=== PATIENT | male | born 1995 | race American Indian/Alaskan Native ===

== ENCOUNTER 2018-05-22 06:34 | Emergency (ER) | payer SELFPAY ==
[2018-05-22] MEDS ORDERED: ATIVAN IM PRN (09:06)
--- NOTE | 2018-05-22 09:08 | Emergency Department Report ---
ED General Adult HPI - General Chief complaint: Altered Mental Status Stated complaint: R KNEE PAIN/MH EVAL Time Seen by Provider: 05/22/18 09:01 Source: patient, EMS (ems notes not available at time of chart dictation), RN notes reviewed Mode of arrival: Stretcher Limitations: Other (patient is disorganized and appears to be psychotic) - History of Present Illness Initial comments: This is a 22-year-old gentleman with a history of psychiatric disease. He reports that he is out of his valproic acid. As per nursing documentation, patient has been off of his psychiatric medications for days, also has recently admitted to cocaine and marijuana binge. The patient complaining of right lateral knee pain. The pain is sharp, aching, increases with palpation and decreases with rest. It does not radiate anywhere. The patient denies headache, neck pain, chest pain, abdominal pain and shortness of breath. The patient is asking to eat. Patient to me denies suicidality. However, he did endorse some passive comments of "hurting someone." To me he denied this. The patient is disorganized and is a poor historian. There is no family available for collateral information or history at this point in time. -: unknown Location: right, lower extremity Radiation: non-radiation Quality: aching Consistency: intermittent Improves with: other Worsens with: other - Related Data Allergies Allergy/AdvReac Type Severity Reaction Status Date / Time risperidone Allergy Intermediate Anaphylaxis Verified 05/22/18 15:42 ED Review of Systems ROS: Stated complaint: R KNEE PAIN/MH EVAL Other details as noted in HPI Constitutional: denies: fever Eyes: denies: eye discharge ENT: denies: epistaxis Respiratory: denies: cough Cardiovascular: denies: chest pain Musculoskeletal: arthralgia Skin: denies: lesions Neurological: denies: headache, weakness Psychiatric: denies: suicidal thoughts ED Past Medical Hx - Past Medical History Previous Medical History?: Yes Hx Hypertension: Yes Hx Psychiatric Treatment: Yes (Schizo affective D/O, Major depression) - Surgical History Past Surgical History?: No - Social History Smoking Status: Current Every Day Smoker Substance Use Type: Alcohol, Cocaine, Marijuana ED Physical Exam - General Limitations: Other (patient boisterous, psychotic, but initially amenable to verbal de-escalation) General appearance: alert, anxious - Head Head exam: Present: atraumatic, normocephalic - Eye Eye exam: Present: normal appearance, EOMI. Absent: nystagmus - ENT ENT exam: Present: normal exam, normal orophraynx, mucous membranes moist, normal external ear exam - Neck Neck exam: Present: normal inspection, full ROM. Absent: tenderness, meningismus - Respiratory Respiratory exam: Present: normal lung sounds bilaterally. Absent: respiratory distress - Cardiovascular Cardiovascular Exam: Present: regular rate, normal rhythm, normal heart sounds. Absent: bradycardia, tachycardia, irregular rhythm, systolic murmur, diastolic murmur, rubs, gallop - GI/Abdominal GI/Abdominal exam: Present: soft. Absent: distended, tenderness, guarding, rebound, rigid, pulsatile mass - Rectal Rectal exam: Present: deferred - Extremities Exam Extremities exam: Present: normal inspection (there is an abrasion noted to the lateral aspect of the right knee.), full ROM, other (abrasion2+ pulses noted in the bilateral upper, lower extremities. Compartments soft. No long bony tenderness. The pelvis is stable.) - Back Exam Back exam: Present: normal inspection, full ROM. Absent: tenderness, CVA tenderness (R), paraspinal tenderness, vertebral tenderness - Neurological Exam Neurological exam: Present: alert, oriented X3, other (abrasion noted to right lateral knee.). Absent: motor sensory deficit - Psychiatric Psychiatric exam: Present: anxious, manic - Skin Skin exam: Present: warm, dry, intact, normal color, other (abrasion over the right lateral neck). Absent: rash ED Course Vital Signs 05/22/18 05/22/18 08:30 14:02 Temperature 98.1 F 97.9 F Pulse Rate 87 87 Respiratory 18 87 H Rate Blood Pressure 131/78 124/75 [Right] O2 Sat by Pulse 98 95 Oximetry ED Medical Decision Making - Lab Data Result diagrams: 05/22/18 09:11 05/22/18 09:11 Vital Signs 05/22/18 08:30 Temperature 98.1 F Pulse Rate 87 Respiratory 18 Rate Blood Pressure 131/78 [Right] O2 Sat by Pulse 98 Oximetry Lab Results 05/22/18 05/22/18 05/22/18 Range/Units 09:11 09:11 09:11 WBC 8.0 (4.5-11.0) K/mm3 RBC 4.61 (3.65-5.03) M/mm3 Hgb 14.6 (11.8-15.2) gm/dl Hct 40.9 (35.5-45.6) % MCV 89 (84-94) fl MCH 32 (28-32) pg MCHC 36 H (32-34) % RDW 13.4 (13.2-15.2) % Plt Count 205 (140-440) K/mm3 Sodium 141 (137-145) mmol/L Potassium 3.9 (3.6-5.0) mmol/L Chloride 104.1 (98-107) mmol/L Carbon Dioxide 25 (22-30) mmol/L Anion Gap 16 mmol/L BUN 18 (9-20) mg/dL Creatinine 1.0 (0.8-1.5) mg/dL Estimated GFR > 60 ml/min BUN/Creatinine Ratio 18 % Glucose 88 (75-100) mg/dL Calcium 9.2 (8.4-10.2) mg/dL Total Creatine Kinase 716 H (55-170) units/L Salicylates < 0.3 L (2.8-20.0) mg/dL Acetaminophen (10.0-30.0) ug/mL Valproic Acid 26.4 L (50-100) ug/mL Plasma/Serum Alcohol (0-0.07) % 05/22/18 05/22/18 Range/Units 09:11 09:11 WBC (4.5-11.0) K/mm3 RBC (3.65-5.03) M/mm3 Hgb (11.8-15.2) gm/dl Hct (35.5-45.6) % MCV (84-94) fl MCH (28-32) pg MCHC (32-34) % RDW (13.2-15.2) % Plt Count (140-440) K/mm3 Sodium (137-145) mmol/L Potassium (3.6-5.0) mmol/L Chloride (98-107) mmol/L Carbon Dioxide (22-30) mmol/L Anion Gap mmol/L BUN (9-20) mg/dL Creatinine (0.8-1.5) mg/dL Estimated GFR ml/min BUN/Creatinine Ratio % Glucose (75-100) mg/dL Calcium (8.4-10.2) mg/dL Total Creatine Kinase (55-170) units/L Salicylates (2.8-20.0) mg/dL Acetaminophen < 5.0 L (10.0-30.0) ug/mL Valproic Acid (50-100) ug/mL Plasma/Serum Alcohol < 0.01 (0-0.07) % - Radiology Data Radiology results: report reviewed, image reviewed X-ray of the right knee is negative for acute disease - Medical Decision Making Differential diagnosis, including but not limited to: Psychosis, intoxication, knee abrasion Assessment and plan: 22-year-old gentleman who appears to lack decision-making capacity, who has made passive, to not wanting to hurt other people. Initially, when his provider evaluated the patient, he was disorganized, and endorses no suicidality. However, he refused to speak to the psychiatric twisting department end finder. In addition, he did make comments to the nurse who triaged him that he had contemplated hurting other people. Since the patient appears to lack decision-making capacity currently, and has made some passive thoughts about wanting to harm other people, and they be intoxicated and impaired and currently is lacking decision-making capacity, the patient is placed on a 1013 and involuntary hold. We will give oral fluids for his creatinine kinase of 700. This level by itself does not meet the definition criteria of rhabdomyolysis, and will decrease with oral fluids. Patient has normal renal function, and soft muscular compartments. His knee x-ray was unremarkable. His physical examination was otherwise unremarkable. At this point in time, there does not appear to be an immediate medical contraindication to psychiatric admission, evaluation, and consultation. Critical care attestation.: If time is entered above; I have spent that time in minutes in the direct care of this critically ill patient, excluding procedure time. ED Disposition Clinical Impression: Psychosis Disposition: DC/TX-65 PSY HOSP/PSY UNIT Is pt being admited?: No Does the pt Need Aspirin: No Condition: Good Referrals: MERLENE COYNE [Primary Care Provider] - 3-5 Days
[2018-05-22 09:26] LABS: Hematocrit 40.9 % (35.5-45.6); Hemoglobin 14.6 gm/dl (11.8-15.2); Mean Corpuscular HGB Conc 36 % (32-34); Mean Corpuscular Volume 89 fl (84-94); Platelet Count 205 K/mm3 (140-440); Red Blood Count 4.61 M/mm3 (3.65-5.03); Red Cell Distribution Width 13.4 % (13.2-15.2)
[2018-05-22 09:44] LABS: BUN/Creatinine Ratio 18; Blood Urea Nitrogen 18 mg/dL (9-20); Calcium 9.2 mg/dL (8.4-10.2); Hemolysis Index 8
--- NOTE | 2018-05-22 11:29 | XRay Report ---
RIGHT KNEE: Pain. The bony architecture is intact without evidence of fracture or dislocation. No significant soft tissue abnormality is seen. IMPRESSION: Normal right knee.
[2018-05-22] MEDS ORDERED: NACL 0.9% 1000 ML 2,000 ML IV ONE (12:39)
[2018-05-22] MEDS ORDERED: HALDOL IM PRN (12:39)
[2018-05-22 16:40] LABS: Amphetamine Screen,Urine PRESUMPTIVE NEGATIVE; Benzodiazepines Screen,Urine PRESUMPTIVE NEGATIVE; Methadone Screen,Urine PRESUMPTIVE NEGATIVE; Opiate Screen,Urine PRESUMPTIVE NEGATIVE
[2018-05-22 16:57] LABS: Cannabinoid Screen,Urine PRESUMPTIVE POSITIVE; Cocaine Screen,Urine PRESUMPTIVE POSITIVE
--- NOTE | 2018-05-23 13:06 | Consultation ---
Addendum entered and electronically signed by BETH JOEL NP 05/23/18 13:58: Will initiate the patient's psy medications once all labs have resulted. Original Note: History of Present Illness - Reason for Consult Consult date: 05/23/18 Reason for consult: Mental Health Evaluation Requesting physician: NEO MABRY - Chief Complaint Chief complaint: "I need my medication" - History of Present Psychiatric Illness 22 y.o. AA male who presented to the ER for bizarre behavior. Today the patient is calm, but disorganized during the assessment. He stated that he was just released from [facility]. He was asked several times why he came to the E R, he stated "For my knee." He was asked how did he end up on a 1013, he could not explain. His answers were not logical nor was he lucid. He was questioned about hurting someone, he would stare at me the provider and ramble about something else irrelevant. His stated that he haven't slept for day prior to coming to the ER. He denies SI/HI's and VH's. He would not confirm or deny AH's. He denies a poor appetite. He acknowledged using recreational drugs when asked. Medications and Allergies Allergies Allergy/AdvReac Type Severity Reaction Status Date / Time risperidone Allergy Intermediate Anaphylaxis Verified 05/22/18 15:42 Home Medications Medication Instructions Recorded Confirmed Last Taken Type No Known Home Medications [No 05/22/18 05/22/18 Unknown History Reported Home Medications] Active Meds: Active Medications Haloperidol Lactate (Haldol) 5 mg IM Q6HR PRN PRN Reason: Agitation Last Admin: 05/22/18 16:00 Dose: 5 mg Documented by: Lorazepam (Ativan) 2 mg IM Q4HR PRN PRN Reason: Agitation Past psychiatric history - Past Medical History Past Medical History: hypertension Past Surgical History: No surgical history - past Psychiatric treatment and history psychiatric treatment history: inpatient at [facility] last week per the patient. Denies a fam psy hx. - Social History Social history: lives with family Mental Status Exam - Vital signs Last Vital Signs Temp 98.4 F 05/23/18 07:20 Pulse 92 H 05/23/18 07:20 Resp 18 05/23/18 07:20 BP 140/79 05/23/18 07:20 Pulse Ox 99 05/23/18 07:20 - Exam Narrative exam: MSE: Appearance: disheveled Behavior: poor eye contact Speech: regular rate with and tone Mood: labile Affect: congruent to mood Thought Process: disorganized Thought Content: denies SI/Hi's and VH's Motor Activity: sitting up in bed Cognition: A/O x3 Insight: poor Judgment: poor Results Result Diagrams: 05/22/18 09:11 05/22/18 09:11 All other labs normal. Assessment and Plan Assessment and plan: Impression: Unspecified Mood DO with psy features. Substance Use DO (cocaine). Cannabis Use DO. The patient is possibly manic. Today the patient is calm, but disorganized during the assessment DDx: Bipolar DO, Schizoaffective DO, Substance Induced Mood/Psychotic DO Recommendation/Plan: Continue 1013 and start Seroquel 100 mg PO HS for yvette/psychosis and Depakote 500 mg PO BID for mood. Discussed possible metabolic side effects of Seroquel with the patient. Dispo: The patient can was referred to inpatient psy services. Will staff with Dr Zainab Boone.
[2018-05-23 13:57] LABS: Alanine Aminotransferase 14 units/L (7-56)
[2018-05-23 15:11] LABS: Bilirubin,Urine NEG (Negative); Blood,Urine NEG (Negative); Color,Urine Yellow (Yellow); Mucus,Urine FEW /HPF; Protein,Urine <15 mg/dL mg/dL (Negative)
--- NOTE | 2018-05-24 14:10 | Progress Note ---
Subjective - Reason for Consult Consult date: 05/24/18 Reason for consult: Psychiatric Follow-up Evaluation - Chief Complaint Chief complaint: " I feel more healthier than yesterday" Patient is a 22 y.o. AA male who presented to the ER for bizarre behavior. Today the patient is calm, but disorganized during the assessment. During assessment patient can be seen responding to internal stimuli. He reports good appetite and poor sleep. He continuously states that he came to the emergency room for a knee energy, a panic attack, and other things he care not to discuss. He denies SI/HI's, A/VH's, and delusions. Mental Status Exam - Vital signs Last Vital Signs Temp 98.3 F 05/24/18 07:59 Pulse 63 05/24/18 07:59 Resp 18 05/24/18 07:59 BP 153/67 05/24/18 07:59 Pulse Ox 100 05/24/18 07:59 - Exam Narrative exam: Mental Status Exam Appearance: disheveled Behavior: poor eye contact Speech: regular rate with and tone Mood: labile' " more healthier than yesterday" Affect: congruent to mood Thought Process: disorganized Thought Content: denies SI/Hi's and VH's Motor Activity: sitting up in bed Cognition: A/O x3 Insight: poor Judgment: poor Assessment and Plan Impression: Unspecified Mood DO with psychotic features. Substance Use DO (cocaine). Cannabis Use DO. The patient is possibly manic. Today the patient is calm, but disorganized during the assessment. DDx: Bipolar DO, Schizoaffective DO, Substance Induced Mood/Psychotic DO Recommendation/Plan: 1. Continue 1013. Will reassess in 24 hours. 2. Start Seroquel 100 mg PO HS for yvette/psychosis and Depakote 500 mg PO BID for mood. Discussed possible metabolic side effects of Seroquel with the patient. 3. Will continue to monitor mood, psychosis, sleep, appetite, compliance, and side effects. Disposition: The patient can was referred to inpatient psychiatric services. Will staff with Dr. Dionte Boone.
[2018-05-24 20:53] VITALS: BP 125/88
== END 2018-05-25 03:13 ==
LOC: EEVIPCON 06:34 → ED 06:34
DX: F29 Unspecified psychosis not due to a substance or known physiological condition (principal); F39 Unspecified mood [affective] disorder; F25.9 Schizoaffective disorder, unspecified; M25.561 Pain in right knee; F32.9 Major depressive disorder, single episode, unspecified; F14.10 Cocaine abuse, uncomplicated; F12.10 Cannabis abuse, uncomplicated; I10 Essential (primary) hypertension; F17.200 Nicotine dependence, unspecified, uncomplicated; Z88.8 Allergy status to other drugs, medicaments and biological substances; Z79.899 Other long term (current) drug therapy
CPT/HCPCS: 36415; 73562; 80048; 80164; 80307; 81001; 82150; 82550; 83690; 84075; 84450; 84460; 85027; 96372; 99285; G0480; J1630; 80320

== ENCOUNTER 2019-11-14 02:23 | Emergency (ER) | payer SELFPAY ==
[2019-11-14 03:37] LABS: BUN/Creatinine Ratio 12; Blood Urea Nitrogen 14 mg/dL (9-20); Calcium 9.2 mg/dL (8.4-10.2); Hemolysis Index 7
[2019-11-14 03:55] LABS: Basophils % (Auto) 0.4 % (0.0-1.8); Eosinophils # (Auto) 0.1 K/mm3 (0.0-0.4); Eosinophils % (Auto) 1.5 % (0.0-4.3); Lymphocytes # (Auto) 1.5 K/mm3 (1.2-5.4); Lymphocytes % (Auto) 30.3 % (13.4-35.0); Mean Corpuscular HGB Conc 36 % (32-34); Mean Corpuscular Volume 87 fl (84-94); Monocytes # (Auto) 0.5 K/mm3 (0.0-0.8); Monocytes % (Auto) 10.1 % (0.0-7.3); Platelet Count 236 K/mm3 (140-440); Red Blood Count 4.23 M/mm3 (3.65-5.03); Red Cell Distribution Width 13.1 % (13.2-15.2)
[2019-11-14 04:00] LABS: Hematocrit 36.8 % (35.5-45.6); Hemoglobin 13.3 gm/dl (11.8-15.2)
[2019-11-14 05:01] LABS: Bilirubin,Urine NEG (Negative); Blood,Urine SM (Negative); Color,Urine Yellow (Yellow); Mucus,Urine FEW /HPF; Protein,Urine <15 mg/dL mg/dL (Negative)
[2019-11-14 05:06] LABS: Amphetamine Screen,Urine PRESUMPTIVE POSITIVE; Benzodiazepines Screen,Urine PRESUMPTIVE NEGATIVE; Cannabinoid Screen,Urine PRESUMPTIVE POSITIVE; Cocaine Screen,Urine PRESUMPTIVE POSITIVE; Methadone Screen,Urine PRESUMPTIVE NEGATIVE; Opiate Screen,Urine PRESUMPTIVE NEGATIVE
[2019-11-14] MEDS ORDERED: LIDOCAINE (1%) 10 MG/1 ML VIAL 20 ML MDV ONE (09:59)
--- NOTE | 2019-11-14 10:02 | Emergency Department Report ---
HPI - General Chief Complaint: Psych Time Seen by Provider: 11/14/19 09:32 - HPI HPI: Room 4 The patient is a 24-year-old male present with a chief complaint of suicidal ideation. Patient states he is felt depressed and suicidal for the past 2-3 days. When asked if he did anything to try to harm himself the patient states he took 2 unknown pills/drugs 2 days ago. Patient also admits to asking others for weapons so that he could kill himself. Of note approximately 7 to 8 days ago the patient was bitten on his right foot by an unknown dog ED Past Medical Hx - Past Medical History Previous Medical History?: Yes Hx Hypertension: Yes Hx Psychiatric Treatment: Yes (Schizo affective D/O, Major depression) - Surgical History Past Surgical History?: No - Family History Family history: no significant - Social History Smoking Status: Current Every Day Smoker Substance Use Type: Marijuana, Other - Medications Home Medications: Home Medications Medication Instructions Recorded Confirmed Last Taken Type Depakote Dr 1,000 mg PO BID 08/23/18 08/23/18 Unknown History SEROquel 300 mg PO DAILY 08/23/18 08/23/18 Unknown History ED Review of Systems ROS: Stated complaint: MH Other details as noted in HPI Constitutional: no symptoms reported Respiratory: no symptoms reported Endocrine: no symptoms reported Physical Exam - Physical Exam Vital Signs: Vital Signs 11/14/19 11/14/19 02:32 08:48 Temperature 99.0 F 98.1 F Pulse Rate 94 H 70 Respiratory 16 16 Rate Blood Pressure 136/88 141/85 O2 Sat by Pulse 95 100 Oximetry Physical Exam: GENERAL: The patient is well-developed well-nourished male lying on stretcher not appearing to be in acute distress. [] HEENT: Normocephalic. Atraumatic. Extraocular motions are intact. Patient has moist mucous membranes. NECK: Supple. Trachea midline CHEST/LUNGS: Clear to auscultation. There is no respiratory distress noted. HEART/CARDIOVASCULAR: Regular. There is no tachycardia. There is no gallop rub or murmur. ABDOMEN: Abdomen is soft, nontender. Patient has normal bowel sounds. There is no abdominal distention. SKIN: There is a well-healed scar on the right foot where the patient states he was bitten by dog. No open wounds. No surrounding erythema NEURO: The patient is awake, alert, and oriented. The patient is cooperative. The patient has normal speech MUSCULOSKELETAL: There is no evidence of acute injury. ED Course Vital Signs 11/14/19 11/14/19 02:32 08:48 Temperature 99.0 F 98.1 F Pulse Rate 94 H 70 Respiratory 16 16 Rate Blood Pressure 136/88 141/85 O2 Sat by Pulse 95 100 Oximetry - Reevaluation(s) Reevaluation #1: 11/14/19 10:51 Approximately 2 mils of rabies immunoglobulin injected locally around right foot dog bite site. Patient could no longer tolerate more injections of the remainder was given IM in the right deltoid - Consultations Consultation #1: 11/14/19 09:58 Case discussed with poison control. Still recommend administration of rabies immunoglobulin and rabies vaccination ED Medical Decision Making - Lab Data Result diagrams: 11/14/19 03:04 11/14/19 03:04 Laboratory Tests 11/14/19 11/14/19 11/14/19 03:04 03:04 03:04 WBC RBC Hgb Hct MCV MCH MCHC RDW Plt Count Lymph % (Auto) Craig % (Auto) Eos % (Auto) Baso % (Auto) Lymph # Craig # Eos # Baso # Seg Neutrophils % Seg Neutrophils # Sodium 135 L Potassium 3.5 L Chloride 100.3 Carbon Dioxide 24 Anion Gap 14 BUN 14 Creatinine 1.2 Estimated GFR > 60 BUN/Creatinine Ratio 12 Glucose 98 Calcium 9.2 Urine Color Urine Turbidity Urine pH Ur Specific [place] Urine Protein Urine Glucose (UA) Urine Ketones Urine Blood Urine Nitrite Urine Bilirubin Urine Urobilinogen Ur Leukocyte Esterase Urine WBC (Auto) Urine RBC (Auto) U Epithel Cells (Auto) Urine Mucus Salicylates < 0.3 L Urine Opiates Screen Urine Methadone Screen Acetaminophen 5.0 L Ur Barbiturates Screen Valproic Acid Ur Phencyclidine Scrn Ur Amphetamines Screen U Benzodiazepines Scrn Urine Cocaine Screen U Marijuana (THC) Screen Drugs of Abuse Note Plasma/Serum Alcohol 11/14/19 11/14/19 11/14/19 03:04 03:04 03:04 WBC 5.1 RBC 4.23 Hgb 13.3 Hct 36.8 MCV 87 MCH 32 MCHC 36 H RDW 13.1 L Plt Count 236 Lymph % (Auto) 30.3 Craig % (Auto) 10.1 H Eos % (Auto) 1.5 Baso % (Auto) 0.4 Lymph # 1.5 Craig # 0.5 Eos # 0.1 Baso # 0.0 Seg Neutrophils % 57.7 Seg Neutrophils # 2.9 Sodium Potassium Chloride Carbon Dioxide Anion Gap BUN Creatinine Estimated GFR BUN/Creatinine Ratio Glucose Calcium Urine Color Urine Turbidity Urine pH Ur Specific [place] Urine Protein Urine Glucose (UA) Urine Ketones Urine Blood Urine Nitrite Urine Bilirubin Urine Urobilinogen Ur Leukocyte Esterase Urine WBC (Auto) Urine RBC (Auto) U Epithel Cells (Auto) Urine Mucus Salicylates Urine Opiates Screen Urine Methadone Screen Acetaminophen Ur Barbiturates Screen Valproic Acid < 2.8 L Ur Phencyclidine Scrn Ur Amphetamines Screen U Benzodiazepines Scrn Urine Cocaine Screen U Marijuana (THC) Screen Drugs of Abuse Note Plasma/Serum Alcohol < 0.01 11/14/19 11/14/19 04:47 04:47 WBC RBC Hgb Hct MCV MCH MCHC RDW Plt Count Lymph % (Auto) Craig % (Auto) Eos % (Auto) Baso % (Auto) Lymph # Craig # Eos # Baso # Seg Neutrophils % Seg Neutrophils # Sodium Potassium Chloride Carbon Dioxide Anion Gap BUN Creatinine Estimated GFR BUN/Creatinine Ratio Glucose Calcium Urine Color Yellow Urine Turbidity Clear Urine pH 6.0 Ur Specific [place] 1.017 Urine Protein <15 mg/dl Urine Glucose (UA) Neg Urine Ketones Neg Urine Blood Sm Urine Nitrite Neg Urine Bilirubin Neg Urine Urobilinogen 4.0 Ur Leukocyte Esterase Neg Urine WBC (Auto) 3.0 Urine RBC (Auto) 3.0 U Epithel Cells (Auto) < 1.0 Urine Mucus Few Salicylates Urine Opiates Screen Presumptive negative Urine Methadone Screen Presumptive negative Acetaminophen Ur Barbiturates Screen Presumptive negative Valproic Acid Ur Phencyclidine Scrn Presumptive negative Ur Amphetamines Screen Presumptive positive U Benzodiazepines Scrn Presumptive negative Urine Cocaine Screen Presumptive positive U Marijuana (THC) Screen Presumptive positive Drugs of Abuse Note Disclamer Plasma/Serum Alcohol - Differential Diagnosis Suicidal ideation, dog bite Critical care attestation.: If time is entered above; I have spent that time in minutes in the direct care of this critically ill patient, excluding procedure time. ED Disposition Clinical Impression: Suicidal ideation, Dog bite of right foot Disposition: DC/TX-65 PSY HOSP/PSY UNIT Is pt being admited?: No Does the pt Need Aspirin: No Condition: Stable Additional Instructions: You have been given a dose of rabies immunoglobulin (1710 international units) as well as your first rabies vaccination. You need to receive 3 more vaccinations to protect you from rabies. Your second dose is due November 17, 2019, your third dose is due November 21, 2019 and your final dose is due November 28, 2019. Return to the emergency department or follow-up with your primary physician for these vaccinations. Return to the emergency department should you develop worsening symptoms, inability to tolerate food or liquids, high fever or any other concerns Referrals: PRIMARY CARE, [Primary Care Provider] - 3-5 Days Time of Disposition: 10:56 (Awaiting acceptance)
[2019-11-14] MEDS ORDERED: RABIES IMMUNE GLOBULIN P/F 300 UNIT/ML INJ 5 ML IM ONE (10:30)
[2019-11-14] MEDS ORDERED: RABIES VACCINE, HUMAN DIPLOID/PF 2.5 UNIT/ML VIAL IM ONE (10:30)
[2019-11-14] MEDS ORDERED: diphenhydrAMINE 50 MG/ML VIAL IV ONE (12:08)
[2019-11-14] MEDS ORDERED: LIDOCAINE (1%) 10 MG/1 ML VIAL 20 ML MDV INFILTRATI ONE (17:20)
[2019-11-15 08:04] VITALS: BP 125/82
--- NOTE | 2019-11-15 10:51 | Consultation ---
History of Present Illness - Reason for Consult Consult date: 11/15/19 Reason for consult: MHE Requesting physician: COLETTE PETERS - Chief Complaint Chief complaint: SI - History of Present Psychiatric Illness Per ED Provider: The patient is a 24-year-old male present with a chief complaint of suicidal ideation. Patient states he is felt depressed and suicidal for the past 2-3 days. When asked if he did anything to try to harm himself the patient states he took 2 unknown pills/drugs 2 days ago. Patient also admits to asking others for weapons so that he could kill himself. Of note approximately 7 to 8 days ago the patient was bitten on his right foot by an unknown dog. PSYCH HPI Patient is a single homeless unemployed 24-year-old -[place] male with past psychiatric history of schizophrenia and no significant past medical histor y was brought to the ER by EMS with chief complaint of suicidal ideation. Patient reports the audio production manager of the store at [employer] was the one who called EMS after he was wandering there and they asked him. 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 Patient reports his dad is currently late and his mom lives in another state. He also reported having multiple legal issues with most recent one was for theft. Patient endorses to illicit drug use such as pills, crack, marijuana. Patient endorses to feeling depressed due to hopelessness and helplessness and endorses suicidal ideation. PAST PSYCHIATRIC HISTORY Diagnoses: Schizoaffective Suicide attempts or Self-harm behavior: Yes Prior psychiatric hospitalizations: Yes Substance Abuse history: Crack, pills, marijuana Previous psychiatric medications tried: None reported Outpatient treatment: PAST MEDICAL HISTORY:None Family Psychiatric History: None reported or documented SOCIAL HISTORY Marital Status: single Living Arrangements: homeless Employment Status: unemployed Access to guns/weapons: none reported Education: High school History of Abuse: none reported [facility] REVIEW OF SYSTEMS Constitutional: Negative for weight loss ENT: Negative for stridor Respiratory: Negative for cough or hemoptysis All other systems reviewed and are negative MENTAL STATUS EXAMINATION General Appearance and Behavior: Age appropriate, fair hygiene, wearing appropriate clothes, good eye contact, cooperative polite with questioning. Cooperation: Participating/engaged Psychomotor Behavior: unremarkable and within normal limits Mood: Good Affect and affective range: congruent Thought Process: Fluent/Logical Thought Content: Hopelessness, Helplessness Speech: Normal volume, Regular rate and rhythm Intellectual Functioning: Average Suicidal Ideation: Denies SI Homicidal Ideation: Denies HI Impulse Control: Unimpaired Insight and Judgment: Normal insight and judgment Memory: Normal Attention: Normal, Orientation: Alert, oriented RECOMMENDATIONS Substance induce mood disorder, needs meds restarted and substance use rehab MEDICATIONS: home meds restarted Risks, benefits and alternatives of medications discussed with the patient, questions answered and consent obtained from patient. PSYCHOTHERAPY: Supportive psychotherapy provided MEDICAL: Per primary team DELIRIUM PRECAUTIONS: Please re-orient patient frequently, keep lights on during the day, and minimize benzodiazepines and opiates as these medications could worsen patient's confusion. EMPLOYEE OPERATIONS EXAMINER: Per medical team DISPOSITION: acute inpatient psychiatric hospitalization at this time LEGAL STATUS: 1013 FOLLOW-UP: Will follow Thank you for the consult. Please contact with any questions and/or concerns. Medications and Allergies Allergies Allergy/AdvReac Type Severity Reaction Status Date / Time risperidone Allergy Intermediate Anaphylaxis Verified 05/22/18 15:42 aripiprazole [From Abilify] Allergy Unknown Verified 11/14/19 02:38 ziprasidone [From Geodon] Allergy Unknown Verified 11/14/19 02:38 Home Medications Medication Instructions Recorded Confirmed Last Taken Type Depakote Dr 1,000 mg PO BID 08/23/18 08/23/18 Unknown History SEROquel 300 mg PO DAILY 08/23/18 08/23/18 Unknown History Mental Status Exam - Vital signs Last Vital Signs Temp 98.2 F 11/15/19 08:03 Pulse 80 11/15/19 08:03 Resp 18 11/15/19 08:03 BP 125/82 11/15/19 08:03 Pulse Ox 98 11/15/19 08:03 Results Result Diagrams: 11/14/19 03:04 11/14/19 03:04 All other labs normal.
[2019-11-15] MEDS ORDERED: busPIRone 10 MG TAB PO SCH (22:00)
[2019-11-15] MEDS ORDERED: QUEtiapine 100 MG TAB PO SCH (22:00)
== END 2019-11-15 16:40 ==
LOC: ED 02:23
DX: S91.351A Open bite, right foot, initial encounter (principal); R45.851 Suicidal ideations; I10 Essential (primary) hypertension; F17.200 Nicotine dependence, unspecified, uncomplicated; F12.10 Cannabis abuse, uncomplicated; Z79.899 Other long term (current) drug therapy; Z88.8 Allergy status to other drugs, medicaments and biological substances; W54.0XXA Bitten by dog, initial encounter; Y93.89 Activity, other specified; Y92.89 Other specified places as the place of occurrence of the external cause; Y99.8 Other external cause status
CPT/HCPCS: 36415; 80048; 80164; 80307; 81001; 85025; 90375; 90471; 90675; 96372; 96374; 99285; J1200; 80320; G0480

== ENCOUNTER 2019-12-20 19:07 | Emergency (ER) | payer SELFPAY ==
[2019-12-20 20:32] LABS: Hemoglobin 14.1 gm/dl (11.8-15.2); Mean Corpuscular HGB Conc 35 % (32-34); Mean Corpuscular Volume 89 fl (84-94); Platelet Count 238 K/mm3 (140-440); Red Blood Count 4.51 M/mm3 (3.65-5.03); Red Cell Distribution Width 13.2 % (13.2-15.2)
[2019-12-20 20:37] LABS: Benzodiazepines Screen,Urine Negative; Methadone Screen,Urine Negative; Opiate Screen,Urine Negative
[2019-12-20 20:38] LABS: BUN/Creatinine Ratio 18; Blood Urea Nitrogen 14 mg/dL (9-20); Calcium 8.8 mg/dL (8.4-10.2); Hemolysis Index 21
[2019-12-20 20:51] LABS: Amphetamine Screen,Urine Positive; Cannabinoid Screen,Urine Positive; Cocaine Screen,Urine Positive
[2019-12-20 21:15] LABS: Bilirubin,Urine NEG (Negative); Blood,Urine NEG (Negative); Color,Urine Yellow (Yellow); Mucus,Urine FEW /HPF; Protein,Urine <15 mg/dL mg/dL (Negative)
[2019-12-20 22:04] LABS: Total Cells Counted 100
[2019-12-20 22:05] LABS: Giant Platelets Rare; RBC Morphology Normal
--- NOTE | 2019-12-20 22:47 | Emergency Department Report ---
<MILEY ROBERTS - Last Filed: 12/20/19 22:39> ED Psych HPI - General Chief Complaint: Psych Stated Complaint: SUICIDAL Time Seen by Provider: 12/20/19 19:50 Source: patient, EMS Mode of arrival: Ambulatory - History of Present Illness Initial Comments: Patient is a 24-year-old F Sammarinese male who is presenting with suicidal ideations. Patient states prior to his arrival he took a friend's gun and held it to his head. Patient was not able to fire the gun. Gun was taken from him. Patient states he is just having thoughts of killing himself. He is denies any auditory or visual hallucinations. There is no homicidal ideations at this time. - Related Data Home Medications Medication Instructions Recorded Confirmed Last Taken Depakote Dr 1,000 mg PO BID 08/23/18 08/23/18 Unknown SEROquel 300 mg PO DAILY 08/23/18 08/23/18 Unknown Allergies Allergy/AdvReac Type Severity Reaction Status Date / Time risperidone Allergy Intermediate Anaphylaxis Verified 05/22/18 15:42 aripiprazole [From Abilify] Allergy Unknown Verified 11/14/19 02:38 ziprasidone [From Geodon] Allergy Unknown Verified 11/14/19 02:38 ED Review of Systems Comment: All other systems reviewed and negative ED Past Medical Hx - Past Medical History Hx Hypertension: Yes Hx Psychiatric Treatment: Yes (Schizo affective D/O, Major depression) - Social History Smoking Status: Current Every Day Smoker Substance Use Type: Alcohol, Cocaine - Medications Home Medications: Home Medications Medication Instructions Recorded Confirmed Last Taken Type Depakote Dr 1,000 mg PO BID 08/23/18 08/23/18 Unknown History SEROquel 300 mg PO DAILY 08/23/18 08/23/18 Unknown History ED Physical Exam - General Limitations: No Limitations General appearance: alert, in no apparent distress - Head Head exam: Present: atraumatic, normocephalic - Eye Eye exam: Present: normal appearance, PERRL, EOMI - ENT ENT exam: Present: mucous membranes moist - Neck Neck exam: Present: normal inspection - Respiratory Respiratory exam: Present: normal lung sounds bilaterally. Absent: respiratory distress, wheezes, rales, rhonchi - Cardiovascular Cardiovascular Exam: Present: regular rate, normal rhythm. Absent: systolic murmur, diastolic murmur, rubs, gallop - GI/Abdominal GI/Abdominal exam: Present: soft, normal bowel sounds. Absent: distended, tenderness, guarding, rebound - Rectal Rectal exam: Present: deferred - Extremities Exam Extremities exam: Present: normal inspection - Back Exam Back exam: Present: normal inspection - Neurological Exam Neurological exam: Present: alert, oriented X3 - Psychiatric Psychiatric exam: Present: normal affect, normal mood - Skin Skin exam: Present: warm, dry, intact, normal color. Absent: rash ED Course - Reevaluation(s) Reevaluation #1: 12/20/19 22:49 Patient is medically cleared at this time. Mental health assessment has been done and the patient will be placed on a 1013. Please see mental health assessment note LISHA MCKINNEY Male : 1995 MedRec# [id number] 12/20/19 22:33 - MH Fiber Picker's Note by MORRIS AGARWAL Acct Num: [id number] : 1995 Patient Age: 24 Pt is a 24 yo AA male presenting to ED for MHE, as pt reported SI with plan to shoot self with gun, Depression. During ax, pt presented with cooperative behaviors, anxious mood and cinongruent affect. Pt reports onset of SI with plan 12/20/19 . PT placed gun to head 12/20/19. Pt reports depression for four weeks. Pt identified trigger of lack of stable housing and social supports. Pt denies hx of attempts. Pt denies HI. Pt denies visual hallucinations. PT reports command hallucinations. Denies command hallucinations. Pt reports hx of Schizophrenia or Schizoeffective Disorder. Pt reports cocaine use. Pt reports "snorting " a couple lines 12/18/19. Pt reports onset age 18. Pt reports cocaine use three to four times a week. Pt reports maijuana abuse. Pt reports onset age 14. Pt reports last use 12/18/19. Pt reports smoking three or more blunts every three to four days. Pt reports last use . Pt repors alcohol abuse. Pt reports onset age 21. Pt reports drinking half a pint to a pint of hard liquor three to four times a week. Pt reports last use 12/18/19. Pt does not present with any active withdrawal symptoms currently but reports feeling uncomfortable. Pt reports is homeless. Pt is unemployed. Pt denies legal issues. Pt reports decline in sleep/appetite, informing research project coordinator that he has not been getting enough. Recommendations: At this time pt presents with active SI, with plan. Pt meets criteria for IP tx and will be referred for stabilization once medically cleared. Pt to be referred via [facility] board due to be uninsured. Initialized on 12/20/19 22:33 - END OF NOTE 12/20/19 22:50 ED Medical Decision Making - Lab Data Result diagrams: 12/20/19 20:08 12/20/19 20:08 Lab Results 12/20/19 12/20/19 12/20/19 Range/Units 20:08 20:08 20:08 WBC 5.9 (4.5-11.0) K/mm3 RBC 4.51 (3.65-5.03) M/mm3 Hgb 14.1 (11.8-15.2) gm/dl Hct 40.0 (35.5-45.6) % MCV 89 (84-94) fl MCH 31 (28-32) pg MCHC 35 H (32-34) % RDW 13.2 (13.2-15.2) % Plt Count 238 (140-440) K/mm3 Add Manual Diff Complete Total Counted 100 Seg Neutrophils % Child Welfare Caseworker Seg Neuts % (Manual) 30.0 L (40.0-70.0) % Band Neutrophils % 0 % Lymphocytes % (Manual) 56.0 H (13.4-35.0) % Reactive Lymphs % (Man) 0 % Monocytes % (Manual) 9.0 H (0.0-7.3) % Eosinophils % (Manual) 4.0 (0.0-4.3) % Basophils % (Manual) 1.0 (0.0-1.8) % Metamyelocytes % 0 % Myelocytes % 0 % Promyelocytes % 0 % Blast Cells % 0 % Nucleated RBC % Not Reportable Seg Neutrophils # Man 1.8 (1.8-7.7) K/mm3 Band Neutrophils # 0.0 K/mm3 Lymphocytes # (Manual) 3.3 (1.2-5.4) K/mm3 Abs React Lymphs (Man) 0.0 K/mm3 Monocytes # (Manual) 0.5 (0.0-0.8) K/mm3 Eosinophils # (Manual) 0.2 (0.0-0.4) K/mm3 Basophils # (Manual) 0.1 (0.0-0.1) K/mm3 Metamyelocytes # 0.0 K/mm3 Myelocytes # 0.0 K/mm3 Promyelocytes # 0.0 K/mm3 Blast Cells # 0.0 K/mm3 WBC Morphology Not Reportable Hypersegmented Neuts Not Reportable Hyposegmented Neuts Not Reportable Hypogranular Neuts Not Reportable Smudge Cells Not Reportable Toxic Granulation Not Reportable Toxic Vacuolation Not Reportable Dohle Bodies Not Reportable Pelger-Huet Anomaly Not Reportable David Rods Not Reportable Platelet Estimate Not Reportable Clumped Platelets Not Reportable Plt Clumps, EDTA Not Reportable Large Platelets Not Reportable Giant Platelets Rare Platelet Satelliting Not Reportable Plt Morphology Comment Not Reportable RBC Morphology Normal Dimorphic RBCs Not Reportable Polychromasia Not Reportable Hypochromasia Not Reportable Poikilocytosis Not Reportable Anisocytosis Not Reportable Microcytosis Not Reportable Macrocytosis Not Reportable Spherocytes Not Reportable Pappenheimer Bodies Not Reportable Sickle Cells Not Reportable Target Cells Not Reportable Tear Drop Cells Not Reportable Ovalocytes Not Reportable Helmet Cells Not Reportable Bobo-Bealeton Bodies Not Reportable [place] Rings Not Reportable Jemima Cells Not Reportable Bite Cells Not Reportable Crenated Cell Not Reportable Elliptocytes Not Reportable Acanthocytes (Spur) Not Reportable Rouleaux Not Reportable Hemoglobin C Crystals Not Reportable Schistocytes Not Reportable Malaria parasites Not Reportable Jonathan Bodies Not Reportable Hem Pathologist Commnt No Sodium 141 (137-145) mmol/L Potassium 4.0 (3.6-5.0) mmol/L Chloride 104.9 (98-107) mmol/L Carbon Dioxide 24 (22-30) mmol/L Anion Gap 16 mmol/L BUN 14 (9-20) mg/dL Creatinine 0.8 (0.8-1.3) mg/dL Estimated GFR > 60 ml/min BUN/Creatinine Ratio 18 % Glucose 106 H (75-100) mg/dL Calcium 8.8 (8.4-10.2) mg/dL Urine Color (Yellow) Urine Turbidity (Clear) Urine pH (5.0-7.0) Ur Specific [place] (1.003-1.030) Urine Protein (Negative) mg/dL Urine Glucose (UA) (Negative) mg/dL Urine Ketones (Negative) mg/dL Urine Blood (Negative) Urine Nitrite (Negative) Urine Bilirubin (Negative) Urine Urobilinogen (<2.0) mg/dL Ur Leukocyte Esterase (Negative) Urine WBC (Auto) (0.0-6.0) /HPF Urine RBC (Auto) (0.0-6.0) /HPF U Epithel Cells (Auto) (0-13.0) /HPF Urine Mucus /HPF Salicylates < 0.3 L (2.8-20.0) mg/dL Urine Opiates Screen Urine Methadone Screen Acetaminophen (10.0-30.0) ug/mL Ur Barbiturates Screen Ur Phencyclidine Scrn Ur Amphetamines Screen U Benzodiazepines Scrn Urine Cocaine Screen U Marijuana (THC) Screen Drugs of Abuse Note Plasma/Serum Alcohol (0-0.07) % 12/20/19 12/20/19 12/20/19 Range/Units 20:08 20:08 Unknown WBC (4.5-11.0) K/mm3 RBC (3.65-5.03) M/mm3 Hgb (11.8-15.2) gm/dl Hct (35.5-45.6) % MCV (84-94) fl MCH (28-32) pg MCHC (32-34) % RDW (13.2-15.2) % Plt Count (140-440) K/mm3 Add Manual Diff Total Counted Seg Neutrophils % Seg Neuts % (Manual) (40.0-70.0) % Band Neutrophils % % Lymphocytes % (Manual) (13.4-35.0) % Reactive Lymphs % (Man) % Monocytes % (Manual) (0.0-7.3) % Eosinophils % (Manual) (0.0-4.3) % Basophils % (Manual) (0.0-1.8) % Metamyelocytes % % Myelocytes % % Promyelocytes % % Blast Cells % % Nucleated RBC % Seg Neutrophils # Man (1.8-7.7) K/mm3 Band Neutrophils # K/mm3 Lymphocytes # (Manual) (1.2-5.4) K/mm3 Abs React Lymphs (Man) K/mm3 Monocytes # (Manual) (0.0-0.8) K/mm3 Eosinophils # (Manual) (0.0-0.4) K/mm3 Basophils # (Manual) (0.0-0.1) K/mm3 Metamyelocytes # K/mm3 Myelocytes # K/mm3 Promyelocytes # K/mm3 Blast Cells # K/mm3 WBC Morphology Hypersegmented Neuts Hyposegmented Neuts Hypogranular Neuts Smudge Cells Toxic Granulation Toxic Vacuolation Dohle Bodies Pelger-Huet Anomaly David Rods Platelet Estimate Clumped Platelets Plt Clumps, EDTA Large Platelets Giant Platelets Platelet Satelliting Plt Morphology Comment RBC Morphology Dimorphic RBCs Polychromasia Hypochromasia Poikilocytosis Anisocytosis Microcytosis Macrocytosis Spherocytes Pappenheimer Bodies Sickle Cells Target Cells Tear Drop Cells Ovalocytes Helmet Cells Bobo-Bealeton Bodies [place] Rings Emmet Cells Bite Cells Crenated Cell Elliptocytes Acanthocytes (Spur) Rouleaux Hemoglobin C Crystals Schistocytes Malaria parasites Jonathan Bodies Hem Pathologist Commnt Sodium (137-145) mmol/L Potassium (3.6-5.0) mmol/L Chloride (98-107) mmol/L Carbon Dioxide (22-30) mmol/L Anion Gap mmol/L BUN (9-20) mg/dL Creatinine (0.8-1.3) mg/dL Estimated GFR ml/min BUN/Creatinine Ratio % Glucose (75-100) mg/dL Calcium (8.4-10.2) mg/dL Urine Color Yellow (Yellow) Urine Turbidity Clear (Clear) Urine pH 6.0 (5.0-7.0) Ur Specific [place] 1.032 H (1.003-1.030) Urine Protein <15 mg/dl (Negative) mg/dL Urine Glucose (UA) Neg (Negative) mg/dL Urine Ketones Neg (Negative) mg/dL Urine Blood Neg (Negative) Urine Nitrite Neg (Negative) Urine Bilirubin Neg (Negative) Urine Urobilinogen 4.0 (<2.0) mg/dL Ur Leukocyte Esterase Tr (Negative) Urine WBC (Auto) 4.0 (0.0-6.0) /HPF Urine RBC (Auto) 3.0 (0.0-6.0) /HPF U Epithel Cells (Auto) < 1.0 (0-13.0) /HPF Urine Mucus Few /HPF Salicylates (2.8-20.0) mg/dL Urine Opiates Screen Urine Methadone Screen Acetaminophen 5.0 L (10.0-30.0) ug/mL Ur Barbiturates Screen Ur Phencyclidine Scrn Ur Amphetamines Screen U Benzodiazepines Scrn Urine Cocaine Screen U Marijuana (THC) Screen Drugs of Abuse Note Plasma/Serum Alcohol < 0.01 (0-0.07) % 12/20/19 Range/Units Unknown WBC (4.5-11.0) K/mm3 RBC (3.65-5.03) M/mm3 Hgb (11.8-15.2) gm/dl Hct (35.5-45.6) % MCV (84-94) fl MCH (28-32) pg MCHC (32-34) % RDW (13.2-15.2) % Plt Count (140-440) K/mm3 Add Manual Diff Total Counted Seg Neutrophils % Seg Neuts % (Manual) (40.0-70.0) % Band Neutrophils % % Lymphocytes % (Manual) (13.4-35.0) % Reactive Lymphs % (Man) % Monocytes % (Manual) (0.0-7.3) % Eosinophils % (Manual) (0.0-4.3) % Basophils % (Manual) (0.0-1.8) % Metamyelocytes % % Myelocytes % % Promyelocytes % % Blast Cells % % Nucleated RBC % Seg Neutrophils # Man (1.8-7.7) K/mm3 Band Neutrophils # K/mm3 Lymphocytes # (Manual) (1.2-5.4) K/mm3 Abs React Lymphs (Man) K/mm3 Monocytes # (Manual) (0.0-0.8) K/mm3 Eosinophils # (Manual) (0.0-0.4) K/mm3 Basophils # (Manual) (0.0-0.1) K/mm3 Metamyelocytes # K/mm3 Myelocytes # K/mm3 Promyelocytes # K/mm3 Blast Cells # K/mm3 WBC Morphology Hypersegmented Neuts Hyposegmented Neuts Hypogranular Neuts Smudge Cells Toxic Granulation Toxic Vacuolation Dohle Bodies Pelger-Huet Anomaly David Rods Platelet Estimate Clumped Platelets Plt Clumps, EDTA Large Platelets Giant Platelets Platelet Satelliting Plt Morphology Comment RBC Morphology Dimorphic RBCs Polychromasia Hypochromasia Poikilocytosis Anisocytosis Microcytosis Macrocytosis Spherocytes Pappenheimer Bodies Sickle Cells Target Cells Tear Drop Cells Ovalocytes Helmet Cells Bobo-Bealeton Bodies [place] Rings Emmet Cells Bite Cells Crenated Cell Elliptocytes Acanthocytes (Spur) Rouleaux Hemoglobin C Crystals Schistocytes Malaria parasites Jonathan Bodies Hem Pathologist Commnt Sodium (137-145) mmol/L Potassium (3.6-5.0) mmol/L Chloride (98-107) mmol/L Carbon Dioxide (22-30) mmol/L Anion Gap mmol/L BUN (9-20) mg/dL Creatinine (0.8-1.3) mg/dL Estimated GFR ml/min BUN/Creatinine Ratio % Glucose (75-100) mg/dL Calcium (8.4-10.2) mg/dL Urine Color (Yellow) Urine Turbidity (Clear) Urine pH (5.0-7.0) Ur Specific [place] (1.003-1.030) Urine Protein (Negative) mg/dL Urine Glucose (UA) (Negative) mg/dL Urine Ketones (Negative) mg/dL Urine Blood (Negative) Urine Nitrite (Negative) Urine Bilirubin (Negative) Urine Urobilinogen (<2.0) mg/dL Ur Leukocyte Esterase (Negative) Urine WBC (Auto) (0.0-6.0) /HPF Urine RBC (Auto) (0.0-6.0) /HPF U Epithel Cells (Auto) (0-13.0) /HPF Urine Mucus /HPF Salicylates (2.8-20.0) mg/dL Urine Opiates Screen Negative Urine Methadone Screen Negative Acetaminophen (10.0-30.0) ug/mL Ur Barbiturates Screen Negative Ur Phencyclidine Scrn Negative Ur Amphetamines Screen Positive U Benzodiazepines Scrn Negative Urine Cocaine Screen Positive U Marijuana (THC) Screen Positive Drugs of Abuse Note Disclamer Plasma/Serum Alcohol (0-0.07) % ED Disposition Clinical Impression: Substance induced mood disorder, Cocaine abuse Disposition: DC-01 TO HOME OR SELFCARE Condition: Stable Additional Instructions: Do not drive or operate motor vehicles for the next 6 months, or until cleared to do so by a primary care doctor. Follow-up with your primary care doctor and/or psychiatrist within the next month. Avoid consumption of cocaine and recreational drugs. Consumption of the aforementioned may cause addiction, disability, , loss of quality of life, and will/likely impaired decision- making. Outpatient COMMUNITY Behavioral Health Resources: [facility] ([facility]) [address] [place] [address] / [phone] Tuesday thru Tuesday - 8am - 5pm [facility] Address: [address] [place] [address] Tuesday thru Tuesday- 7am-2pm [facility] Address: [address] [place] [address] Tuesday thru Tuesday: 8:30AM-5PM SUBSTANCE ABUSE PROGRAMS: [facility]: Location: [place], [place] [employer] Address: [address] [place] [address] [facility] Recovery: Address: [address] [facility] [place] [address] [facility]: Address: [address] [place] [address] [facility]: Address: [address] [place] [address] [facility] Address: [address] [place] [address]. HOMELESS RESOURCES: [facility] NEED HELP? If you are in need of help or know someone who does, please contact us at [email or web address] call , or come to our offices at [address] [place] [address], Tuesday-Tuesday beginning at 8AM. [facility] Admission at 7am Tue to Tue Address: [address] [place] [address] Client Engagement [phone] Regular program admission occurs Tuesday through Tuesday at 7:00 amand operates on a first come, first serve basis.Because we cant anticipate program availability in advance andprogram spots are in high demand, we recommend arriving early. Space fills up fast! Next steps can include: Assignment to a [facility] program bed Connection to and placement in a partner program, or Referral to a partner agency [facility]: MARRY Conley Address: [place] [address] How do I join the [facility] housing program? Our housing programs are offered based on availability. If you are looking to participate in our housing program, simply call [phone] to find out if we have available space. Since we do receive many calls, please allow up to 48 hours for one of our housing specialists to return your call. If we do not have vacancies, we suggest callingthe [facility] hotline at 211 for additional housing options. [facility] Admission at 4:30pm daily Address: [place] [address] [facility] [employer] [facility] [employer] is to take chronically homeless men and help them overcome their barriers, change them as human beings,making them productive and self- sufficient individuals. Each [employer] participant is housed at our facility for up to a year while they participate in transitional work (earning $7.40/hr for 30+ hours per week). All participants renounce dependency and remain drug and alcohol free. Personal support, case management, and workforce training is offered throughout the program. We also provide AA/NA Classes, GED classes, support in obtaining a helper driver's licenses,help setting up a bank account,and life skill preparation courses. IF A MAN IS COMMITTED TO BEING CLEAN, TO ADDRESSING THE PAST, AND TO WORKING, WE WILL HELP HIM GET A MANAGER NURSING HOME JOB, TRANSPORTATION AND PERMANENT HOUSING WITHIN A YEAR. [employer] [address] [place], [place] [id number] [email or web address] CRISIS RESOURCES [place] Crisis Line: Suicide Prevention Line: Crisis Text Line: Text START to 587127 Emergency: 911 Referrals: [facility] [Provider Group] - as needed <NEO MABRY - Last Filed: 12/21/19 13:21> ED Review of Systems ROS: Stated complaint: SUICIDAL Other details as noted in HPI ED Course Vital Signs 12/20/19 12/20/19 12/21/19 20:35 20:39 01:39 Temperature 98.3 F 98.0 F Pulse Rate 77 69 Respiratory 18 18 18 Rate Blood Pressure 136/84 133/80 [Left] O2 Sat by Pulse 100 100 98 Oximetry - Reevaluation(s) Reevaluation #2: 12/21/19 13:19 Patient medically cleared by initial provider. 1013 was rescinded by psychiatry team. He was provided a list of outpatient resources. Patient resting comfortably in his stretcher at this time, and in no acute distress. ED Medical Decision Making - Lab Data Result diagrams: 12/20/19 20:08 12/20/19 20:08 Critical care attestation.: If time is entered above; I have spent that time in minutes in the direct care of this critically ill patient, excluding procedure time. ED Disposition Is pt being admited?: No Does the pt Need Aspirin: No
[2019-12-21 01:40] VITALS: BP 133/80
--- NOTE | 2019-12-21 09:28 | Consultation ---
History of Present Illness - Reason for Consult Consult date: 12/21/19 Reason for consult: MHE Requesting physician: MILEY ROBERTS - History of Present Psychiatric Illness Per ED Provider: Patient is a 24-year-old F [place] male who is presenting with suicidal ideations. Patient states prior to his arrival he took a friend's gun and held it to his head. Patient was not able to fire the gun. Gun was taken from him. Patient states he is just having thoughts of killing himself. He is denies any auditory or visual hallucinations. There is no homicidal ideations at this time. PSYCH HPI Patient is a single homeless unemployed 24-year-old -[place] male with past psychiatric history of schizophrenia and no significant past medical history was brought to the ER by EMS with chief complaint of suicidal ideation. Patient is known to me and familiar, was seen in facility about 4-5 weeks ago and placed. Patient report after he was discharged from the inpatient psych, he didnt have a post care f/u, didnt go to residential place or clam picker either of his prescriptions. Patient reports being found by EMS in a park, admits to drug use, admits to social issues as his main concern and also drug use. PAST PSYCHIATRIC HISTORY Diagnoses: Schizoaffective Suicide attempts or Self-harm behavior: Yes Prior psychiatric hospitalizations: Yes Substance Abuse history: Crack, pills, marijuana Previous psychiatric medications tried: None reported Outpatient treatment: PAST MEDICAL HISTORY:None Family Psychiatric History: None reported or documented SOCIAL HISTORY Marital Status: single Living Arrangements: homeless Employment Status: unemployed Access to guns/weapons: none reported Education: High school History of Abuse: none reported Legal History: [facility] REVIEW OF SYSTEMS Constitutional: Negative for weight loss ENT: Negative for stridor Respiratory: Negative for cough or hemoptysis All other systems reviewed and are negative MENTAL STATUS EXAMINATION General Appearance and Behavior: Age appropriate, fair hygiene, wearing appropriate clothes, good eye contact, cooperative polite with questioning. Cooperation: Participating/engaged Psychomotor Behavior: unremarkable and within normal limits Mood: Good Affect and affective range: congruent Thought Process: Fluent/Logical Thought Content: Hopelessness, Helplessness Speech: Normal volume, Regular rate and rhythm Intellectual Functioning: Average Suicidal Ideation: Denies SI Homicidal Ideation: Denies HI Impulse Control: Unimpaired Insight and Judgment: Normal insight and judgment Memory: Normal Attention: Normal, Orientation: Alert, oriented RECOMMENDATIONS Assessment and Plan - Psychiatric problem (1) Substance induced mood disorder Current Visit: Yes Status: Acute Patient is known to me from prior encouter, was placed for inpt psych Pt did not clam picker rx, or f/u at residential services, endorses to recent cocaine use Pt admits to social issues and drug use a problem I informed pt, he will be given information for residential and programs that could help with other social problems but he also has to stop cocaine use as a seco ndary problem. Substance induce mood disorder, needs meds restarted and substance use rehab MEDICATIONS Pt has rx medications with him. Risks, benefits and alternatives of medications discussed with the patient, questions answered and consent obtained from patient. PSYCHOTHERAPY: Supportive psychotherapy provided MEDICAL: Per primary team DELIRIUM PRECAUTIONS: Please re-orient patient frequently, keep lights on during the day, and minimize benzodiazepines and opiates as these medications could worsen patient's confusion. 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 Please contact with any questions and/or concerns. Medications and Allergies Allergies Allergy/AdvReac Type Severity Reaction Status Date / Time risperidone Allergy Intermediate Anaphylaxis Verified 05/22/18 15:42 aripiprazole [From Abilify] Allergy Unknown Verified 11/14/19 02:38 ziprasidone [From Geodon] Allergy Unknown Verified 11/14/19 02:38 Home Medications Medication Instructions Recorded Confirmed Last Taken Type Depakote Dr 1,000 mg PO BID 08/23/18 08/23/18 Unknown History SEROquel 300 mg PO DAILY 08/23/18 08/23/18 Unknown History Mental Status Exam - Vital signs Last Vital Signs Temp 98.0 F 12/21/19 01:39 Pulse 69 12/21/19 01:39 Resp 18 12/21/19 01:39 BP 133/80 12/21/19 01:39 Pulse Ox 98 12/21/19 01:39 Results Result Diagrams: 12/20/19 20:08 12/20/19 20:08 Abnormal lab results 12/20/19 12/20/19 12/20/19 Range/Units 20:08 20:08 20:08 MCHC 35 H (32-34) % Seg Neuts % (Manual) 30.0 L (40.0-70.0) % Lymphocytes % (Manual) 56.0 H (13.4-35.0) % Monocytes % (Manual) 9.0 H (0.0-7.3) % Glucose 106 H (75-100) mg/dL Ur Specific [place] (1.003-1.030) Salicylates < 0.3 L (2.8-20.0) mg/dL Acetaminophen (10.0-30.0) ug/mL 12/20/19 12/20/19 Range/Units 20:08 Unknown MCHC (32-34) % Seg Neuts % (Manual) (40.0-70.0) % Lymphocytes % (Manual) (13.4-35.0) % Monocytes % (Manual) (0.0-7.3) % Glucose (75-100) mg/dL Ur Specific [place] 1.032 H (1.003-1.030) Salicylates (2.8-20.0) mg/dL Acetaminophen 5.0 L (10.0-30.0) ug/mL All other labs normal. Assessment and Plan - Psychiatric problem (1) Substance induced mood disorder Current Visit: Yes Status: Acute
== END 2019-12-21 14:04 | disposition home or self-care (01) ==
LOC: ED 19:07
DX: F39 Unspecified mood [affective] disorder (principal); F14.10 Cocaine abuse, uncomplicated; I10 Essential (primary) hypertension; F17.200 Nicotine dependence, unspecified, uncomplicated; F32.9 Major depressive disorder, single episode, unspecified; Z79.899 Other long term (current) drug therapy; Z88.8 Allergy status to other drugs, medicaments and biological substances
CPT/HCPCS: 36415; 80048; 80307; 80320; 81001; 85007; 85025; G0480

== ENCOUNTER 2020-01-04 20:45 | Emergency (ER) | payer SELFPAY ==
[2020-01-04 22:04] LABS: Basophils # (Auto) 0.1 K/mm3 (0.0-0.1); Basophils % (Auto) 0.8 % (0.0-1.8); Eosinophils # (Auto) 0.1 K/mm3 (0.0-0.4); Eosinophils % (Auto) 1.1 % (0.0-4.3); Hematocrit 38.7 % (35.5-45.6); Hemoglobin 13.5 gm/dl (11.8-15.2); Lymphocytes # (Auto) 2.8 K/mm3 (1.2-5.4); Lymphocytes % (Auto) 33.1 % (13.4-35.0); Mean Corpuscular HGB Conc 35 % (32-34); Mean Corpuscular Volume 90 fl (84-94); Platelet Count 213 K/mm3 (140-440); Red Blood Count 4.32 M/mm3 (3.65-5.03); Red Cell Distribution Width 12.9 % (13.2-15.2)
[2020-01-04 22:25] LABS: BUN/Creatinine Ratio 16; Blood Urea Nitrogen 18 mg/dL (9-20); Calcium 9.1 mg/dL (8.4-10.2); Hemolysis Index 12
[2020-01-05 02:32] LABS: Bilirubin,Urine NEG (Negative); Blood,Urine SM (Negative); Color,Urine Yellow (Yellow); Mucus,Urine FEW /HPF; Protein,Urine <15 mg/dL mg/dL (Negative)
[2020-01-05 02:39] LABS: Amphetamine Screen,Urine PRESUMPTIVE NEGATIVE; Benzodiazepines Screen,Urine PRESUMPTIVE NEGATIVE; Cannabinoid Screen,Urine PRESUMPTIVE POSITIVE; Cocaine Screen,Urine PRESUMPTIVE POSITIVE; Methadone Screen,Urine PRESUMPTIVE NEGATIVE; Opiate Screen,Urine PRESUMPTIVE NEGATIVE
--- NOTE | 2020-01-05 06:34 | Emergency Department Report ---
ED Psych HPI - General Chief Complaint: Psych Stated Complaint: SUICIDAL THOUGHTS Time Seen by Provider: 01/05/20 06:14 Source: patient Mode of arrival: Stretcher - History of Present Illness Initial Comments: This is a 24-year-old male with a history of psychiatric disorder treated with Seroquel and trazodone and currently noncompliant. He states he has not been recently admitted to a psychiatric facility but later describes a hospitalization perhaps a month and a half ago. He states he is homeless. He states that he is suicidal. He states he has no history of overdose or self- harm. He has no specific plan that he is communicated. He has no current complaints. He is not apparently depressed and is resting comfortably. -: week(s), month(s), year(s) Associated Psychiatric Symptoms: other (Homelessness) History of same: Yes Quality: intermittent Improves With: none Worsens With: none Associated Symptoms: denies other symptoms Treatments Prior to Arrival: none If Self Harm: admits thoughts of - Related Data Home Medications Medication Instructions Recorded Confirmed Last Taken Depakote Dr 1,000 mg PO BID 08/23/18 08/23/18 Unknown SEROquel 300 mg PO DAILY 08/23/18 08/23/18 Unknown Allergies Allergy/AdvReac Type Severity Reaction Status Date / Time risperidone Allergy Intermediate Anaphylaxis Verified 05/22/18 15:42 aripiprazole [From Abilify] Allergy Unknown Verified 11/14/19 02:38 ziprasidone [From Geodon] Allergy Unknown Verified 11/14/19 02:38 ED Review of Systems ROS: Stated complaint: SUICIDAL THOUGHTS Other details as noted in HPI Constitutional: denies: chills, fever Eyes: denies: eye pain, eye discharge, vision change ENT: denies: ear pain, throat pain Respiratory: denies: cough, shortness of breath, wheezing Cardiovascular: denies: chest pain, palpitations Endocrine: no symptoms reported Gastrointestinal: denies: abdominal pain, nausea, diarrhea Genitourinary: denies: urgency, dysuria Musculoskeletal: denies: back pain, joint swelling, arthralgia Skin: denies: rash, lesions Neurological: denies: headache, weakness, paresthesias Psychiatric: suicidal thoughts. denies: anxiety, depression Hematological/Lymphatic: denies: easy bleeding, easy bruising ED Past Medical Hx - Past Medical History Previous Medical History?: Yes Hx Hypertension: Yes Hx Psychiatric Treatment: Yes (Schizo affective D/O, Major depression, Bipolar) - Surgical History Past Surgical History?: No - Social History Smoking Status: Current Every Day Smoker Substance Use Type: Cocaine, Marijuana - Medications Home Medications: Home Medications Medication Instructions Recorded Confirmed Last Taken Type Depakote Dr 1,000 mg PO BID 08/23/18 08/23/18 Unknown History SEROquel 300 mg PO DAILY 08/23/18 08/23/18 Unknown History ED Physical Exam - General Limitations: No Limitations General appearance: alert, in no apparent distress - Head Head exam: Present: atraumatic, normocephalic - Eye Eye exam: Present: normal appearance - ENT ENT exam: Present: mucous membranes moist - Neck Neck exam: Present: normal inspection - Respiratory Respiratory exam: Present: normal lung sounds bilaterally. Absent: respiratory distress - Cardiovascular Cardiovascular Exam: Present: regular rate, normal rhythm. Absent: systolic murmur, diastolic murmur, rubs, gallop - GI/Abdominal GI/Abdominal exam: Present: soft, normal bowel sounds. Absent: distended, te nderness, guarding, rebound - Rectal Rectal exam: Present: deferred - Extremities Exam Extremities exam: Present: normal inspection - Back Exam Back exam: Present: normal inspection - Neurological Exam Neurological exam: Present: alert, oriented X3, CN II-XII intact. Absent: motor sensory deficit - Psychiatric Psychiatric exam: Present: normal affect, normal mood - Skin Skin exam: Present: warm, dry, intact, normal color. Absent: rash ED Course Vital Signs 01/04/20 01/04/20 01/05/20 21:26 21:35 09:51 Temperature 98.2 F 98.0 F Pulse Rate 98 H 80 Respiratory 18 18 Rate Blood Pressure 133/80 Blood Pressure 134/72 [Right] O2 Sat by Pulse 98 100 Oximetry - Reevaluation(s) Reevaluation #1: Medical noncompliance, history of psychiatric disorder. Low risk of self-harm in my current assessment. No 1013 is executed at this time. Defer to mental health for disposition. Consult is pending. Patient is medically clear. 01/05/20 07:01 01/05/20 07:02 Reevaluation #2: Mental health concluded that the patient met 1013 criteria. Form was executed. 01/05/20 12:22 ED Medical Decision Making - Lab Data Result diagrams: 01/04/20 21:49 01/04/20 21:49 Laboratory Results - last 24 hr 01/04/20 01/04/20 01/04/20 21:49 21:49 21:49 WBC RBC Hgb Hct MCV MCH MCHC RDW Plt Count Lymph % (Auto) [place] % (Auto) Eos % (Auto) Baso % (Auto) Lymph # [place] # Eos # Baso # Seg Neutrophils % Seg Neutrophils # Sodium 139 Potassium 4.1 Chloride 103.0 Carbon Dioxide 22 Anion Gap 18 BUN 18 Creatinine 1.1 Estimated GFR > 60 BUN/Creatinine Ratio 16 Glucose 107 H Calcium 9.1 Urine Color Urine Turbidity Urine pH Ur Specific [place] Urine Protein Urine Glucose (UA) Urine Ketones Urine Blood Urine Nitrite Urine Bilirubin Urine Urobilinogen Ur Leukocyte Esterase Urine WBC (Auto) Urine RBC (Auto) U Epithel Cells (Auto) Urine Mucus Salicylates < 0.3 L Urine Opiates Screen Urine Methadone Screen Acetaminophen 5.0 L Ur Barbiturates Screen Ur Phencyclidine Scrn Ur Amphetamines Screen U Benzodiazepines Scrn Urine Cocaine Screen U Marijuana (THC) Screen Drugs of Abuse Note Plasma/Serum Alcohol 01/04/20 01/04/20 01/05/20 21:49 21:49 02:15 WBC 8.4 RBC 4.32 Hgb 13.5 Hct 38.7 MCV 90 MCH 31 MCHC 35 H RDW 12.9 L Plt Count 213 Lymph % (Auto) 33.1 [place] % (Auto) 12.0 H Eos % (Auto) 1.1 Baso % (Auto) 0.8 Lymph # 2.8 [place] # 1.0 H Eos # 0.1 Baso # 0.1 Seg Neutrophils % 53.0 Seg Neutrophils # 4.5 Sodium Potassium Chloride Carbon Dioxide Anion Gap BUN Creatinine Estimated GFR BUN/Creatinine Ratio Glucose Calcium Urine Color Yellow Urine Turbidity Clear Urine pH 5.0 Ur Specific [place] 1.030 Urine Protein <15 mg/dl Urine Glucose (UA) Neg Urine Ketones Neg Urine Blood Sm Urine Nitrite Neg Urine Bilirubin Neg Urine Urobilinogen 4.0 Ur Leukocyte Esterase Neg Urine WBC (Auto) 5.0 Urine RBC (Auto) 3.0 U Epithel Cells (Auto) < 1.0 Urine Mucus Few Salicylates Urine Opiates Screen Urine Methadone Screen Acetaminophen Ur Barbiturates Screen Ur Phencyclidine Scrn Ur Amphetamines Screen U Benzodiazepines Scrn Urine Cocaine Screen U Marijuana (THC) Screen Drugs of Abuse Note Plasma/Serum Alcohol < 0.01 01/05/20 02:15 WBC RBC Hgb Hct MCV MCH MCHC RDW Plt Count Lymph % (Auto) [place] % (Auto) Eos % (Auto) Baso % (Auto) Lymph # [place] # Eos # Baso # Seg Neutrophils % Seg Neutrophils # Sodium Potassium Chloride Carbon Dioxide Anion Gap BUN Creatinine Estimated GFR BUN/Creatinine Ratio Glucose Calcium Urine Color Urine Turbidity Urine pH Ur Specific [place] Urine Protein Urine Glucose (UA) Urine Ketones Urine Blood Urine Nitrite Urine Bilirubin Urine Urobilinogen Ur Leukocyte Esterase Urine WBC (Auto) Urine RBC (Auto) U Epithel Cells (Auto) Urine Mucus Salicylates Urine Opiates Screen Presumptive negative Urine Methadone Screen Presumptive negative Acetaminophen Ur Barbiturates Screen Presumptive negative Ur Phencyclidine Scrn Presumptive negative Ur Amphetamines Screen Presumptive negative U Benzodiazepines Scrn Presumptive negative Urine Cocaine Screen Presumptive positive U Marijuana (THC) Screen Presumptive positive Drugs of Abuse Note Disclamer Plasma/Serum Alcohol Critical care attestation.: If time is entered above; I have spent that time in minutes in the direct care of this critically ill patient, excluding procedure time. ED Disposition Clinical Impression: Substance induced mood disorder, Polysubstance abuse, Suicidal ideation, Medical clearance for psychiatric admission Disposition: [id number]/[id number] PSY HOSP/PSY UNIT Is pt being admited?: No Does the pt Need Aspirin: No Condition: Stable Referrals: NETO MCKINLEY MD [Primary Care Provider] - 3-5 Days Time of Disposition: 12:23
[2020-01-05] MEDS ORDERED: ALUM-MAG HYDROXIDE-SIMETHICONE 200-200-20MG/5ML ORAL LIQD 30 ML PO PRN (07:02)
[2020-01-05] MEDS ORDERED: MAGNESIUM HYDROXIDE (MOM) ORAL LIQD UDC PO PRN (07:02)
[2020-01-05] MEDS ORDERED: ACETAMINOPHEN 325 MG TAB PO PRN (07:02)
[2020-01-05] MEDS: DIVALPROEX ER 500 MG TAB PO SCH ×2 (11:28→22:22)
[2020-01-06] MEDS: DIVALPROEX ER 500 MG TAB PO SCH (10:06)
--- NOTE | 2020-01-06 10:11 | Consultation ---
History of Present Illness - Reason for Consult Consult date: 01/06/20 Reason for consult: MHE Requesting physician: ANI LAYNE - History of Present Psychiatric Illness Per ED Provider: This is a 24-year-old male with a history of psychiatric disorder treated with Seroquel and trazodone and currently noncompliant. He states he has not been recently admitted to a psychiatric facility but later describes a hospitalization perhaps a month and a half ago. He states he is homeless. He states that he is suicidal. He states he has no history of overdose or self-harm. He has no specific plan that he is communicated. He has no current complaints. He is not apparently depressed and is resting comfortably. Per MHA: Pt is a 24 year old AA male; Per triage note, "Suicidal thoughts X 2 days. Has plans to go in traffic and get hit by a vehicle. Has been out of meds X 2 weeks." Pt caries a diagnosis of Schizoaffective Bipolar Type. Pt reports he has been off of his medications for 3 weeks; pt has no outpatient providers. Pt gets his medications, "when I go to different hospitals they give me my meds." Pt reports he has been to [facility] and [facility] in the past. Pt is alert and oriented x 4. Pt denies any AH or VH. Pt is calm and cooperative throughout the assessment. Pt denies any thoughts or plans to harm others.Pt reports current depression and suicidal ideation with a plan to jump in front of the train or in front of traffic. Pt reports he has attempted in the past by walking in front of traffic. Pt reports triggers: lack of employment, lack of income, lack of housing, not being on his medications.Pt reports cocaine (on and off occasionally) and marijuana (daily use). 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 PSYCH HPI Patient is a single homeless unemployed 24-year-old -Citizen Of [place] male with past psychiatric history of schizophrenia and no significant past medical history was brought to the ER by EMS with chief complaint of suicidal ideation and worsening depression. This patient is well known to me from previous encounter. Patient reports he does not have his current medications, even though he had been discharged with medications last visit. He reports getting a call from his brother in [place] that his just , and this about a month ago. Report since the news, he had been feeling down, depressed, sad and evn more lonely than before to the point he feels like jumping on the road and get hit by a car. Patient denies any hallucination, says he may have used drugs some days ago. PAST PSYCHIATRIC HISTORY Diagnoses: Schizoaffective Suicide attempts or Self-harm behavior: Yes Prior psychiatric hospitalizations: Yes Substance Abuse history: Crack, pills, marijuana Previous psychiatric medications tried: None reported Outpatient treatment: PAST MEDICAL HISTORY:None Family Psychiatric History: None reported or documented SOCIAL HISTORY Marital Status: single Living Arrangements: homeless Employment Status: unemployed Access to guns/weapons: none reported Education: High school History of Abuse: none reported Legal History: [facility] REVIEW OF SYSTEMS Constitutional: Negative for weight loss ENT: Negative for stridor Respiratory: Negative for cough or hemoptysis All other systems reviewed and are negative MENTAL STATUS EXAMINATION General Appearance and Behavior: Age appropriate, fair hygiene, wearing appropriate clothes, good eye contact, cooperative polite with questioning. Cooperation: Participating/engaged Psychomotor Behavior: unremarkable and within normal limits Mood: sad Affect and affective range: congruent with mood Thought Process: Fluent/Logical Thought Content: Hopelessness, Helplessness Speech: Normal volume, Regular rate and rhythm Intellectual Functioning: Average Suicidal Ideation: Denies SI Homicidal Ideation: Denies HI Impulse Control: Unimpaired Insight and Judgment: Normal insight and judgment Memory: Normal Attention: Normal, Orientation: Alert, oriented RECOMMENDATIONS Assessment and Plan - Psychiatric problem (1) Dysfunctional grieving Current Visit: Yes Status: Acute (2) Substance induced mood disorder Current Visit: Yes Status: Acute Patient is known to me from prior encouter, was placed for inpt psych 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 MEDICATIONS Patient medications restarted. Risks, benefits and alternatives of medications discussed with the patient, questions answered and consent obtained from patient. PSYCHOTHERAPY: Supportive psychotherapy provided MEDICAL: Per primary team DELIRIUM PRECAUTIONS: Please re-orient patient frequently, keep lights on during the day, and minimize benzodiazepines and opiates as these medications could worsen patient's confusion. 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 Please contact with any questions and/or concerns. Medications and Allergies Allergies Allergy/AdvReac Type Severity Reaction Status Date / Time risperidone Allergy Intermediate Anaphylaxis Verified 05/22/18 15:42 aripiprazole [From Abilify] Allergy Unknown Verified 11/14/19 02:38 ziprasidone [From Geodon] Allergy Unknown Verified 11/14/19 02:38 Home Medications Medication Instructions Recorded Confirmed Last Taken Type Depakote Dr 1,000 mg PO BID 08/23/18 08/23/18 Unknown History SEROquel 300 mg PO DAILY 08/23/18 08/23/18 Unknown History Active Meds: Active Medications Acetaminophen (Tylenol) 650 mg PO Q4HR PRN PRN Reason: Pain MILD(1-3)/Fever >100.5/MONTERO Al Hydrox/Mg Hydrox/Simethicone (Alum-Mag Hydrox-Simeth [phone]/5ml) 30 ml PO Q4HR PRN PRN Reason: Indigestion Divalproex Sodium (Depakote Er) 500 mg PO BID [facility] Last Admin: 01/06/20 10:06 Dose: 500 mg Documented by: Magnesium Hydroxide (Milk Of Magnesia) 30 ml PO Q12HR PRN PRN Reason: Constipation Mental Status Exam - Vital signs Last Vital Signs Temp 97.6 F 01/06/20 08:12 Pulse 82 01/06/20 08:12 Resp 18 01/06/20 08:12 BP 91/63 01/06/20 08:12 Pulse Ox 97 01/06/20 08:12 Results Result Diagrams: 01/04/20 21:49 01/04/20 21:49 All other labs normal. Assessment and Plan - Psychiatric problem (1) Dysfunctional grieving Current Visit: Yes Status: Acute (2) Substance induced mood disorder Current Visit: Yes Status: Acute
[2020-01-06] MEDS ORDERED: FLUoxetine 10 MG TAB PO SCH (11:00)
[2020-01-06] MEDS ORDERED: QUEtiapine 100 MG TAB PO SCH (11:00)
[2020-01-06] MEDS ORDERED: QUEtiapine 25 MG TAB PO SCH (11:00)
[2020-01-06 20:15] VITALS: BP 126/62
== END 2020-01-06 20:45 ==
LOC: ED 20:45 → EEVIPCON 20:45 → ED 01-06 20:45
DX: F39 Unspecified mood [affective] disorder (principal); F19.10 Other psychoactive substance abuse, uncomplicated; I10 Essential (primary) hypertension; F25.0 Schizoaffective disorder, bipolar type; F17.200 Nicotine dependence, unspecified, uncomplicated; F12.10 Cannabis abuse, uncomplicated; F14.10 Cocaine abuse, uncomplicated; Z04.6 Encounter for general psychiatric examination, requested by authority; Z79.899 Other long term (current) drug therapy; Z88.8 Allergy status to other drugs, medicaments and biological substances
CPT/HCPCS: 36415; 80048; 80307; 80320; 81001; 85025; G0480

== ENCOUNTER 2021-01-20 04:30 | Emergency (ER) | payer SELFPAY ==
--- NOTE | 2021-01-20 04:50 | Emergency Department Report ---
HPI - General Time Seen by Provider: 01/20/21 04:42 - HPI HPI: 25-year-old -Slov[place] male presents to the emergency department via EMS from home for a mental health evaluation. The patient has been having depression and suicidal ideations for the past few days. He has the plan to overdose on medication in order to harm himself, and says that he has made suicidal attempts in the past. He has a history of schizophrenia but has been noncompliant with medication the past couple of months. Patient does admit to some history of illicit drug use, but denies using anything this evening. He has a past medical history of hypertension and is also noncompliant with these medications. He is a tobacco smoker. The patient admits to some nonspecific auditory and visual hallucinations. ED Past Medical Hx - Past Medical History Hx Hypertension: Yes Hx Psychiatric Treatment: Yes (Schizo affective D/O, Major depression, Bipolar) - Social History Smoking Status: Current Every Day Smoker Substance Use Type: Cocaine, Marijuana - Medications Home Medications: Home Medications Medication Instructions Recorded Confirmed Last Taken Type SEROquel 300 mg PO QHS 08/23/18 01/20/21 Unknown History Olean Carbonate ER [Lithobid ER] 450 mg PO BID 01/20/21 01/20/21 Unknown Hist ory ED Review of Systems ROS: Stated complaint: MH EVAL/SI Other details as noted in HPI Comment: All other systems reviewed and negative Constitutional: denies: chills, fever Eyes: denies: eye pain, vision change ENT: denies: ear pain, throat pain Respiratory: denies: cough, shortness of breath Cardiovascular: denies: chest pain, palpitations Gastrointestinal: denies: abdominal pain, vomiting Genitourinary: denies: dysuria, discharge Musculoskeletal: denies: back pain, arthralgia Neurological: denies: headache, weakness Psychiatric: auditory hallucinations, visual hallucinations, suicidal thoughts. denies: homicidal thoughts Physical Exam - Physical Exam Physical Exam: GENERAL: The patient is well-developed well-nourished. HENT: Normocephalic. Atraumatic. Patient has moist mucous membranes. EYES: Extraocular motions are intact. NECK: Supple. Trachea is midline. CHEST/LUNGS: Clear to auscultation. There is no respiratory distress noted. HEART/CARDIOVASCULAR: Regular. There is no tachycardia. There is no murmur. ABDOMEN: Abdomen is soft, nontender. Patient has normal bowel sounds. SKIN: Skin is warm and dry. NEURO: The patient is awake, alert, and oriented. The patient is cooperative. The patient has no focal neurologic deficits. Normal speech. MUSCULOSKELETAL: There is no tenderness or deformity. There is no limitation range of motion. ED Medical Decision Making - Lab Data Result diagrams: 01/20/21 05:02 01/20/21 05:02 - Medical Decision Making This patient presents to the emergency department with a complaint of suicidal ideations with a plan to overdose on medication. For this reason the patient has been placed on a 1013 and an 80-year-old. He will be seen in the morning by the psychiatric team who will assist with further disposition. Labs are starting to come back. CBC is unremarkable. I am still waiting for a BMP, blood alcohol level, urinalysis, and UDS, to make sure that the patient is medically cleared for psychiatric placement. Vital signs reassuring throughout his ED course thus far. We will continue to monitor the patient. Critical Care Time: No Critical care attestation.: If time is entered above; I have spent that time in minutes in the direct care of this critically ill patient, excluding procedure time. ED Disposition Clinical Impression: Suicidal ideations Disposition: [address] [place] [address] Is pt being admited?: No Condition: Stable
[2021-01-20 05:45] LABS: Basophils # (Auto) 0.1 K/mm3 (0.0-0.1); Basophils % (Auto) 0.5 % (0.0-1.8); Eosinophils # (Auto) 0.1 K/mm3 (0.0-0.4); Hematocrit 41.8 % (35.5-45.6); Hemoglobin 14.8 gm/dl (11.8-15.2); Lymphocytes # (Auto) 2.8 K/mm3 (1.2-5.4); Lymphocytes % (Auto) 25.6 % (13.4-35.0); Mean Corpuscular HGB Conc 35 % (32-34); Mean Corpuscular Volume 88 fl (84-94); Monocytes # (Auto) 0.4 K/mm3 (0.0-0.8); Monocytes % (Auto) 3.9 % (0.0-7.3); Platelet Count 279 K/mm3 (140-440); Red Blood Count 4.77 M/mm3 (3.65-5.03); Red Cell Distribution Width 12.7 % (13.2-15.2)
[2021-01-20 06:04] LABS: BUN/Creatinine Ratio 13; Blood Urea Nitrogen 13 mg/dL (9-20); Calcium 10.1 mg/dL (8.4-10.2); Hemolysis Index 10
[2021-01-20 11:45] LABS: Bilirubin,Urine NEG (Negative); Blood,Urine NEG (Negative); Color,Urine Yellow (Yellow); Mucus,Urine FEW /HPF; Protein,Urine <15 mg/dL mg/dL (Negative)
[2021-01-20 11:59] LABS: Amphetamine Screen,Urine Negative; Benzodiazepines Screen,Urine Negative; Methadone Screen,Urine Negative; Opiate Screen,Urine Negative
--- NOTE | 2021-01-20 12:34 | Consultation ---
History of Present Illness - Reason for Consult Consult date: 01/20/21 Reason for consult: suicidal ideation - History of Present Psychiatric Illness Per ED Note: 25-year-old -[place] male presents to the emergency department via EMS from home for a mental health evaluation. The patient has been having depression and suicidal ideations for the past few days. He has the plan to overdose on medication in order to harm himself, and says that he has made suicidal attempts in the past. He has a history of schizophrenia but has been noncompliant with medication the past couple of months. Patient does admit to some history of illicit drug use, but denies using anything this evening. He has a past medical history of hypertension and is also noncompliant with these medications. He is a tobacco smoker. The patient admits to some nonspecific auditory and visual hallucinations. Rony Vaughn is a 25 year old male with history of Schizoaffective, Bipolar disorder and medication noncompliant. In my interview with the patient, he rep orts being homeless for a couple of years now; states he last took psychotropic medications about 2 weeks ago. The patient states he his depressed and suicidal with no plan. He denies having homicidal ideation and denies hallucinations. PAST PSYCHIATRIC HISTORY Diagnoses: Schizoaffective, Bipolar Suicide attempts or Self-harm behavior: Yes Prior psychiatric hospitalizations: Yes Substance Abuse history: Crack, pills, marijuana Previous psychiatric medications tried: Seroquel, [place] Outpatient treatment:unknown PAST MEDICAL HISTORY:None Family Psychiatric History: None reported or documented SOCIAL HISTORY Marital Status: single Living Arrangements: Homeless Employment Status: Unemployed Access to guns/weapons: none reported Education: 12th grade History of Abuse: none reported [place] History[place] [facility] [place]VIEW OF SYSTEMS Constitutional: Negative for weight loss ENT: Negative for stridor Respiratory: Negative for cough or hemoptysis All other systems reviewed and are negative MENTAL STATUS EXAMINATION General Appearance and Behavior: Age appropriate, fair hygiene, wearing appropriate clothes, good eye contact, cooperative polite with questioning. Cooperation: Participating/engaged Psychomotor Behavior: unremarkable and within normal limits Mood: depressed Affect and affective range: congruent with mood Thought Process: Fluent/Logical Thought Content: Suicidal Speech: Normal volume, Regular rate and rhythm Intellectual Functioning: Average Suicidal Ideation: Yes Homicidal Ideation: Denies HI Impulse Control: Unimpaired Insight and Judgment: Normal insight and poor judgment Memory: Normal Attention: Normal, Orientation: Alert, oriented RECOMMENDATIONS Assessment and Plan - Psychiatric problem (1) Schizoaffective Disorder- F25.9 Current Visit: Yes Status: Acute Continue 1013 [place] 300mg po daily Seroquel 25 mg po BID MEDICATIONS Patient medications restarted. Risks, benefits and alternatives of medications discussed with the patient, questions answered and consent obtained from patient. PSYCHOTHERAPY: Supportive psychotherapy provided MEDICAL: Per primary team DELIRIUM PRECAUTIONS: Please re-orient patient frequently, keep lights on during the day, and minimize benzodiazepines and opiates as these medications could worsen patient's confusion. HOSPICE RN: Per medical team DISPOSITION: acute inpatient psychiatric hospitalization at this time LEGAL STATUS: 1013 FOLLOW-UP: Will follow Thank you for the consult. Please contact with any questions and/or concerns. Medications and Allergies Allergies Allergy/AdvReac Type Severity Reaction Status Date / Time risperidone Allergy Intermediate Anaphylaxis Verified 01/20/21 04:54 aripiprazole [From Abilify] Allergy Unknown Verified 01/20/21 04:54 ziprasidone [From Geodon] Allergy Unknown Verified 01/20/21 04:54 Home Medications Medication Instructions Recorded Confirmed Last Taken Type SEROquel 300 mg PO QHS 08/23/18 01/20/21 Unknown History [place] Carbonate ER [Lithobid ER] 450 mg PO BID 01/20/21 01/20/21 Unknown History Mental Status Exam - Vital signs Last Vital Signs Temp 98 F 01/20/21 09:57 Pulse 78 01/20/21 09:57 Resp 18 01/20/21 09:57 BP 115/68 01/20/21 09:57 Pulse Ox 97 01/20/21 09:57 Results Result Diagrams: 01/20/21 05:02 01/20/21 05:02 Abnormal lab results 01/20/21 Range/Units 05:02 WBC 11.1 H (4.5-11.0) K/mm3 MCHC 35 H (32-34) % RDW 12.7 L (13.2-15.2) % All other labs normal.
--- NOTE | 2021-01-20 12:59 | Event Note ---
Date: 01/20/21 Patient without issue overnight. Is suggested that the patient continue is a 1013. Please see mental health assessment note below Psychiatric Consult Note Patient Name: LISHA MCKINNEY Date of : 89 Patient Status: Emergency Emergency Provider: [facility] Date: 01/20/21 12:27 Initialization Date: 01/20/21 12:27 History of Present Illness - Reason for Consult Consult date: 01/20/21 Reason for consult: suicidal ideation - History of Present Psychiatric Illness Per ED Note: 25-year-old -Singaporean male presents to the emergency department via EMS from home for a mental health evaluation. The patient has been having depression and suicidal ideations for the past few days. He has the plan to overdose on medication in order to harm himself, and says that he has made suicidal attempts in the past. He has a history of schizophrenia but has been noncompliant with medication the past couple of months. Patient does admit to some history of illicit drug use, but denies using anything this evening. He has a past medical history of hypertension and is also noncompliant with these medications. He is a tobacco smoker. The patient admits to some nonspecific auditory and visual hallucinations. Lisha Mckinney is a 25 year old male with history of Schizoaffective, Bipolar disorder and medication noncompliant. In my interview with the patient, he reports being homeless for a couple of years now; states he last took psychotropic medications about 2 weeks ago. The patient states he his depressed and suicidal with no plan. He denies having homicidal ideation and denies hallucinations. PAST PSYCHIATRIC HISTORY Diagnoses: Schizoaffective, Bipolar Suicide attempts or Self-harm behavior: Yes Prior psychiatric hospitalizations: Yes Substance Abuse history: Crack, pills, marijuana Previous psychiatric medications tried: Seroquel, [place] Outpatient treatment:unknown PAST MEDICAL HISTORY:None Family Psychiatric History: None reported or documented SOCIAL HISTORY Marital Status: single Living Arrangements: Homeless Employment Status: Unemployed Access to guns/weapons: none reported Education: 12th grade History of Abuse: none reported Legal History: [facility] REVIEW OF SYSTEMS Constitutional: Negative for weight loss ENT: Negative for stridor Respiratory: Negative for cough or hemoptysis All other systems reviewed and are negative MENTAL STATUS EXAMINATION General Appearance and Behavior: Age appropriate, fair hygiene, wearing appropriate clothes, good eye contact, cooperative polite with questioning. Cooperation: Participating/engaged Psychomotor Behavior: unremarkable and within normal limits Mood: depressed Affect and affective range: congruent with mood Thought Process: Fluent/Logical Thought Content: Suicidal Speech: Normal volume, Regular rate and rhythm Intellectual Functioning: Average Suicidal Ideation: Yes Homicidal Ideation: Denies HI Impulse Control: Unimpaired Insight and Judgment: Normal insight and poor judgment Memory: Normal Attention: Normal, Orientation: Alert, oriented RECOMMENDATIONS Assessment and Plan - Psychiatric problem (1) Schizoaffective Disorder- F25.9 Current Visit: Yes Status: Acute Continue 1013 [place] 300mg po daily Seroquel 25 mg po BID MEDICATIONS Patient medications restarted. Risks, benefits and alternatives of medications discussed with the patient, questions answered and consent obtained from patient. PSYCHOTHERAPY: Supportive psychotherapy provided MEDICAL: Per primary team DELIRIUM PRECAUTIONS: Please re-orient patient frequently, keep lights on during the day, and minimize benzodiazepines and opiates as these medications could worsen patient's confusion. FILM MASKER: Per medical team DISPOSITION: acute inpatient psychiatric hospitalization at this time LEGAL STATUS: 1013 FOLLOW-UP: Will follow Thank you for the consult. Please contact with any questions and/or concerns.
[2021-01-20 13:07] LABS: Cannabinoid Screen,Urine PRESUMPTIVE POSITIVE; Cocaine Screen,Urine PRESUMPTIVE POSITIVE
[2021-01-20] MEDS: LITHIUM CARBONATE 300 MG CAP PO SCH (13:21)
[2021-01-20] MEDS: QUEtiapine 25 MG TAB PO SCH ×2 (13:22→22:01)
[2021-01-21 07:58] VITALS: BP 111/75
[2021-01-21] MEDS: LITHIUM CARBONATE 300 MG CAP PO SCH (10:12)
[2021-01-21] MEDS: QUEtiapine 25 MG TAB PO SCH (10:12)
--- NOTE | 2021-01-21 12:02 | Progress Note ---
Subjective - Reason for Consult Consult date: 01/21/21 Reason for consult: suicidal ideation - Chief Complaint Chief complaint: The patient was seen resting quietly, he is calm. the patient states that he feels better. He denies any current suicidal/homicidal ideation and denies hallucinations. REVIEW OF SYSTEMS Constitutional: Negative for weight loss ENT: Negative for stridor Respiratory: Negative for cough or hemoptysis All other systems reviewed and are negative MENTAL STATUS EXAMINATION General Appearance and Behavior: Age appropriate, fair hygiene, wearing appropriate clothes, good eye contact, cooperative polite with questioning. Cooperation: Participating/engaged Psychomotor Behavior: unremarkable and within normal limits Mood: "better" Affect and affective range: congruent with mood Thought Process: Fluent/Logical Thought Content: Not Suicidal Speech: Normal volume, Regular rate and rhythm Intellectual Functioning: Average Suicidal Ideation: Denies Homicidal Ideation: Denies HI Impulse Control: Unimpaired Insight and Judgment: Normal insight and fair judgment Memory: Normal Attention: Normal, Orientation: Alert, oriented RECOMMENDATIONS Assessment and Plan - Psychiatric problem (1) Schizoaffective Disorder- F25.9 Current Visit: Yes Status: Acute Discontinue 1013 [place] 300mg po daily Seroquel 25 mg po BID MEDICATIONS Patient medications restarted. Risks, benefits and alternatives of medications discussed with the patient, questions answered and consent obtained from patient. PSYCHOTHERAPY: Supportive psychotherapy provided MEDICAL: Per primary team DELIRIUM PRECAUTIONS: Please re-orient patient frequently, keep lights on during the day, and minimize benzodiazepines and opiates as these medications could worsen patient's confusion. CHIEF CONTROLLER TOWER: Per medical team DISPOSITION: Do not recommend acute inpatient psychiatric hospitalization at this time FOLLOW-UP: Will sign off. Thank you for the consult. Please contact with any questions and/or concerns. Medications and Allergies Mental Status Exam - Vital signs Last Vital Signs Temp 98.2 F 01/21/21 07:57 Pulse 70 01/21/21 07:57 Resp 16 01/21/21 07:57 BP 111/75 01/21/21 07:57 Pulse Ox 100 01/21/21 07:57
--- NOTE | 2021-01-21 12:26 | Event Note ---
Date: 01/21/21 Patient is calm and cooperative. Seen by mental health assessment team and he was cleared for outpatient therapy. Patient no longer endorsing any suicidal ideations. Patient had been restarted on lithium and Seroquel and is feeling much improved. His care has been staffed with Dr. Lyles our psychiatrist. Patient discharged home in stable condition
== END 2021-01-21 12:36 | disposition home or self-care (01) ==
LOC: EEVIPCON 04:30 → ED 04:30
DX: R45.851 Suicidal ideations (principal); I10 Essential (primary) hypertension; F17.200 Nicotine dependence, unspecified, uncomplicated; F12.90 Cannabis use, unspecified, uncomplicated; Z20.822 Contact with and (suspected) exposure to COVID-19
CPT/HCPCS: 36415; 80048; 80307; 81001; 85025; 99284; U0003; 80320; G0480

== ENCOUNTER 2021-05-02 20:20 | Emergency (ER) | payer SELFPAY ==
[2021-05-02 21:22] LABS: Basophils % (Auto) 0.5 % (0.0-1.8); Eosinophils # (Auto) 0.1 K/mm3 (0.0-0.4); Eosinophils % (Auto) 0.9 % (0.0-4.3); Hematocrit 42.6 % (35.5-45.6); Hemoglobin 14.6 gm/dl (11.8-15.2); Lymphocytes # (Auto) 2.3 K/mm3 (1.2-5.4); Mean Corpuscular HGB Conc 34 % (32-34); Mean Corpuscular Volume 88 fl (84-94); Monocytes # (Auto) 0.4 K/mm3 (0.0-0.8); Monocytes % (Auto) 5.6 % (0.0-7.3); Platelet Count 267 K/mm3 (140-440); Red Blood Count 4.85 M/mm3 (3.65-5.03); Red Cell Distribution Width 13.7 % (13.2-15.2)
--- NOTE | 2021-05-02 21:22 | Emergency Department Report ---
HPI - General Chief Complaint: Psych Time Seen by Provider: 05/02/21 20:40 - HPI HPI: 25-year-old -Zambian male presents to the emergency department for a mental health evaluation. He has a history of schizophrenia and says that he has been off of his Seroquel and Depakote for about 1 month. He denies any auditory or visual hallucinations but does admit to a few days of nonspecific suicidal ideations without a plan. The patient has been seen here multiple times in the past for similar symptoms and has been given the previous diagnosis of substance-induced mood disorder and psychosis. At the time of my examination the patient is calm and appropriate, AAO x3. He denies having any psychiatrist or behavioral center for follow-up. ED Past Medical Hx - Past Medical History Hx Hypertension: Yes Hx Psychiatric Treatment: Yes (Schizo affective D/O, Major depression, Bipolar) - Social History Smoking Status: Current Every Day Smoker Substance Use Type: Cocaine, Marijuana - Medications Home Medications: Home Medications Medication Instructions Recorded Confirmed Last Taken Type SEROquel 300 mg PO QHS 08/23/18 01/20/21 Unknown History [place] Carbonate ER [Lithobid ER] 450 mg PO BID 01/20/21 01/20/21 Unknown History [place] Carbonate [Eskalith] 300 mg PO DAILY 30 Days #30 capsule 01/21/21 Unknown Rx QUEtiapine [SEROquel] 25 mg PO BID 30 Days #60 tablet 01/21/21 Unknown Rx ED Review of Systems ROS: Stated complaint: SI Other details as noted in HPI Comment: All other systems reviewed and negative Constitutional: denies: chills, fever Respiratory: denies: cough, shortness of breath Cardiovascular: denies: chest pain, palpitations Gastrointestinal: denies: abdominal pain, vomiting Musculoskeletal: denies: back pain, arthralgia Neurological: denies: headache, weakness Psychiatric: suicidal thoughts. denies: auditory hallucinations, visual hallucinations, homicidal thoughts Physical Exam - Physical Exam Vital Signs: Vital Signs 05/02/21 20:29 Temperature 98.9 F Pulse Rate 98 H Respiratory 18 Rate Blood Pressure 138/91 [Left] O2 Sat by Pulse 100 Oximetry Physical Exam: GENERAL: The patient is well-developed well-nourished. HENT: Normocephalic. Atraumatic. Patient has moist mucous membranes. EYES: Extraocular motions are intact. NECK: Supple. Trachea is midline. CHEST/LUNGS: Clear to auscultation. There is no respiratory distress noted. HEART/CARDIOVASCULAR: Regular. There is no tachycardia. There is no murmur. ABDOMEN: Abdomen is soft, nontender. Patient has normal bowel sounds. SKIN: Skin is warm and dry. NEURO: The patient is awake, alert, and oriented. The patient is cooperative. Normal speech. MUSCULOSKELETAL: There is no tenderness or deformity. ED Course Vital Signs 05/02/21 20:29 Temperature 98.9 F Pulse Rate 98 H Respiratory 18 Rate Blood Pressure 138/91 [Left] O2 Sat by Pulse 100 Oximetry ED Medical Decision Making - Lab Data Result diagrams: 05/02/21 20:50 05/02/21 20:50 Lab Results 05/02/21 05/02/21 05/02/21 Range/Units 20:50 20:50 20:50 WBC 7.8 (4.5-11.0) K/mm3 RBC 4.85 (3.65-5.03) M/mm3 Hgb 14.6 (11.8-15.2) gm/dl Hct 42.6 (35.5-45.6) % MCV 88 (84-94) fl MCH 30 (28-32) pg MCHC 34 (32-34) % RDW 13.7 (13.2-15.2) % Plt Count 267 (140-440) K/mm3 Lymph % (Auto) 30.0 (13.4-35.0) % [place] % (Auto) 5.6 (0.0-7.3) % Eos % (Auto) 0.9 (0.0-4.3) % Baso % (Auto) 0.5 (0.0-1.8) % Lymph # (Auto) 2.3 (1.2-5.4) K/mm3 [place]pson # (Auto) 0.4 (0.0-0.8) K/mm3 Eos # (Auto) 0.1 (0.0-0.4) K/mm3 Baso # (Auto) 0.0 (0.0-0.1) K/mm3 Seg Neutrophils % 63.0 (40.0-70.0) % Seg Neutrophils # 4.9 (1.8-7.7) K/mm3 Sodium 140 (137-145) mmol/L Potassium 3.8 (3.6-5.0) mmol/L Chloride 105.2 (98-107) mmol/L Carbon Dioxide 22 (22-30) mmol/L Anion Gap 17 mmol/L BUN 11 (9-20) mg/dL Creatinine 1.0 (0.8-1.3) mg/dL Estimated GFR > 60 ml/min BUN/Creatinine Ratio 11 % Glucose 90 (75-100) mg/dL Calcium 9.4 (8.4-10.2) mg/dL Urine Color (Yellow) Urine Turbidity (Clear) Urine pH (5.0-7.0) Ur Specific [place] (1.003-1.030) Urine Protein (Negative) mg/dL Urine Glucose (UA) (Negative) mg/dL Urine Ketones (Negative) mg/dL Urine Blood (Negative) Urine Nitrite (Negative) Urine Bilirubin (Negative) Urine Urobilinogen (<2.0) mg/dL Ur Leukocyte Esterase (Negative) Urine WBC (Auto) (0.0-6.0) /HPF Urine RBC (Auto) (0.0-6.0) /HPF U Epithel Cells (Auto) (0-13.0) /HPF Urine Mucus /HPF Urine Opiates Screen Urine Methadone Screen Ur Barbiturates Screen Ur Phencyclidine Scrn Ur Amphetamines Screen U Benzodiazepines Scrn Urine Cocaine Screen U Marijuana (THC) Screen Drugs of Abuse Note Plasma/Serum Alcohol < 0.01 (0-0.07) % 05/02/21 05/02/21 Range/Units Unknown Unknown WBC (4.5-11.0) K/mm3 RBC (3.65-5.03) M/mm3 Hgb (11.8-15.2) gm/dl Hct (35.5-45.6) % MCV (84-94) fl MCH (28-32) pg MCHC (32-34) % RDW (13.2-15.2) % Plt Count (140-440) K/mm3 Lymph % (Auto) (13.4-35.0) % Upson % (Auto) (0.0-7.3) % Eos % (Auto) (0.0-4.3) % Baso % (Auto) (0.0-1.8) % Lymph # (Auto) (1.2-5.4) K/mm3 [place] # (Auto) (0.0-0.8) K/mm3 Eos # (Auto) (0.0-0.4) K/mm3 Baso # (Auto) (0.0-0.1) K/mm3 Seg Neutrophils % (40.0-70.0) % Seg Neutrophils # (1.8-7.7) K/mm3 Sodium (137-145) mmol/L Potassium (3.6-5.0) mmol/L Chloride (98-107) mmol/L Carbon Dioxide (22-30) mmol/L Anion Gap mmol/L BUN (9-20) mg/dL Creatinine (0.8-1.3) mg/dL Estimated GFR ml/min BUN/Creatinine Ratio % Glucose (75-100) mg/dL Calcium (8.4-10.2) mg/dL Urine Color Yellow (Yellow) Urine Turbidity Clear (Clear) Urine pH 5.0 (5.0-7.0) Ur Specific [place] 1.028 (1.003-1.030) Urine Protein 30 mg/dl (Negative) mg/dL Urine Glucose (UA) Neg (Negative) mg/dL Urine Ketones Neg (Negative) mg/dL Urine Blood Neg (Negative) Urine Nitrite Neg (Negative) Urine Bilirubin Neg (Negative) Urine Urobilinogen 4.0 (<2.0) mg/dL Ur Leukocyte Esterase Neg (Negative) Urine WBC (Auto) 6.0 (0.0-6.0) /HPF Urine RBC (Auto) 1.0 (0.0-6.0) /HPF U Epithel Cells (Auto) < 1.0 (0-13.0) /HPF Urine Mucus Few /HPF Urine Opiates Screen Negative Urine Methadone Screen Negative Ur Barbiturates Screen Negative Ur Phencyclidine Scrn Negative Ur Amphetamines Screen Positive U Benzodiazepines Scrn Negative Urine Cocaine Screen Positive U Marijuana (THC) Screen Positive Drugs of Abuse Note Disclamer Plasma/Serum Alcohol (0-0.07) % - Medical Decision Making This patient presents to the emergency department for mental health evaluation secondary to suicidal ideations without a plan. For this reason the patient has been made a 1013. He was seen by the psychiatric butt welder, Gracie, who agrees that the patient meets criteria for a 1013 and inpatient stabilization. Labs have been mostly unremarkable including CBC, metabolic panel, blood alcohol level and urinalysis. UDS is positive for amphetamines, cocaine and marijuana, but the patient does not appear acutely intoxicated. Vital signs reassuring. Being afebrile. Patient is medically cleared for psychiatric placement. Critical Care Time: No Critical care attestation.: If time is entered above; I have spent that time in minutes in the direct care of this critically ill patient, excluding procedure time. ED Disposition Clinical Impression: Suicidal ideations, Polysubstance abuse, Schizophrenia Disposition: [address] [place] [address] Is pt being admited?: No Condition: Stable Time of Disposition: 23:07
[2021-05-02 21:33] LABS: BUN/Creatinine Ratio 11; Blood Urea Nitrogen 11 mg/dL (9-20); Calcium 9.4 mg/dL (8.4-10.2); Hemolysis Index 1
[2021-05-02 22:19] LABS: Benzodiazepines Screen,Urine Negative; Methadone Screen,Urine Negative; Opiate Screen,Urine Negative
[2021-05-02 22:31] LABS: Bilirubin,Urine NEG (Negative); Blood,Urine NEG (Negative); Color,Urine Yellow (Yellow); Mucus,Urine FEW /HPF
[2021-05-02 22:34] LABS: Amphetamine Screen,Urine Positive; Cannabinoid Screen,Urine Positive; Cocaine Screen,Urine Positive
[2021-05-03 08:58] VITALS: BP 139/85
--- NOTE | 2021-05-03 11:00 | Consultation ---
History of Present Illness - Reason for Consult Consult date: 05/03/21 Reason for consult: Substance abuse, hx of schizophrenia - History of Present Psychiatric Illness The patient was seen today. He is calm, cooperative and polite. The patient says he came if because he was feeling suicidal. He says "I'm doing good now." He says "I felt bad last nigh. I was coming down off hard ICE." The patient then says "I'm sober now." He says he has a history of bipolar and schizophrenia. The patient denies hallucinations of any kind. He says he's been off of his meds about a month. He says he takes seroquel and depakote. The patient says he's originally from [place] and has been here about 4 years. He says he lives with different people but is "really homeless." He says "but I have somewhere I can go inside." PAST PSYCHIATRIC HISTORY Diagnoses: Schizophrenia Suicide attempts or Self-harm behavior: Yes Prior psychiatric hospitalizations: Yes Substance Abuse history: Crack, pills, marijuana Previous psychiatric medications tried: None reported Outpatient treatment: PAST MEDICAL HISTORY:None Family Psychiatric History: None reported or documented SOCIAL HISTORY Marital Status: Living Arrangements: homeless Employment Status: unemployed Access to guns/weapons: none reported Education: High school History of Abuse: none reported Legal History: [facility] [place] REVIEW OF SYSTEMS Constitutional: Negative for weight loss ENT: Negative for stridor Respiratory: Negative for cough or hemoptysis All other systems reviewed and are negative MENTAL STATUS EXAMINATION General Appearance and Behavior: Age appropriate, wearing appropriate clothes, good eye contact, cooperative polite with questioning. Cooperation: Participating/engaged Psychomotor Behavior: unremarkable and within normal limits Mood: Good Affect and affective range: congruent with mood Thought Process: Fluent/Logical Thought Content: None Speech: Normal volume, Regular rate and rhythm Suicidal Ideation: Denies SI Homicidal Ideation: Denies HI Impulse Control: Limited Insight and Judgment: Normal insight and judgment Memory: Normal Attention: Normal, Orientation: Alert, oriented Assessment and Plan (1) Methamphetamine Dependence (2) Substance induced mood disorder Treatment Plan d/c 1013 Seroquel 25mg po BID Depakote DR 125mg po BID Medical: per primary Disposition: Do not recommend acute psychiatric inpatient treatment. The patient understands that if SI/HI or any fear of endangerment are to arise he is to seek immediate assistance. He is to abstain from all illicit drug use The electrical equipment technician is to give him all necessary resources including drug rehab, penitentiary, group homes, etc The electrical equipment technician to further discuss safety plan The patient to follow up with outpatient psych in 7 to 14 days upon discharge Will sing off. Thanks Case staffed with Dr. Lyles Medications and Allergies Allergies Allergy/AdvReac Type Severity Reaction Status Date / Time risperidone Allergy Intermediate Anaphylaxis Verified 05/02/21 20:29 aripiprazole [From Abilify] Allergy Unknown Verified 05/02/21 20:29 ziprasidone [From Geodon] Allergy Unknown Verified 05/02/21 20:29 Home Medications Medication Instructions Recorded Confirmed Last Taken Type SEROquel 300 mg PO QHS 08/23/18 01/20/21 Unknown History [place] Carbonate ER [Lithobid ER] 450 mg PO BID 01/20/21 01/20/21 Unknown History [place] Carbonate [Eskalith] 300 mg PO DAILY 30 Days #30 capsule 01/21/[address] [Yoan DESAI] 125 mg PO BID #60 tablet 05/03/21 Unknown Rx QUEtiapine [SEROquel] 25 mg PO BID 30 Days #60 tablet 05/03/21 Unknown Rx Mental Status Exam - Vital signs Last Vital Signs Temp 98.9 F 05/02/21 20:29 Pulse 81 05/03/21 08:56 Resp 18 05/03/21 08:56 BP 139/85 05/03/21 08:56 Pulse Ox 98 05/03/21 08:56 Results Result Diagrams: 05/02/21 20:50 05/02/21 20:50 All other labs normal.
== END 2021-05-03 12:07 | disposition home or self-care (01) ==
LOC: ED 20:20
DX: F25.9 Schizoaffective disorder, unspecified (principal); I10 Essential (primary) hypertension; F17.200 Nicotine dependence, unspecified, uncomplicated; F12.10 Cannabis abuse, uncomplicated; F14.10 Cocaine abuse, uncomplicated; F31.9 Bipolar disorder, unspecified; R45.851 Suicidal ideations; Z20.822 Contact with and (suspected) exposure to COVID-19
CPT/HCPCS: 36415; 80048; 80307; 81001; 85025; 99284; U0003; 80320; G0480